=== PATIENT | female | born 1945 | race Caucasian/White ===

== ENCOUNTER → 2016-07-19 | Outpatient (CLI) | payer BC, OTHER ==
[~2016-07-19] MED LIST: B-COTAB18 PO; CHOL400T PO; LEVO75TA PO; OMEG12006 PO; ZNTT/150 PO
--- NOTE | 2016-07-19 16:04 | MAMMOGRAPHY REPORT ---
BILATERAL DIGITAL SCREENING MAMMOGRAM WITH CAD: 07/19/2016 CLINICAL HISTORY: Routine screening. Patient has no complaints. TECHNIQUE: Bilateral CC and MLO views were obtained. Current study was also evaluated with a Comput er Aided Detection (CAD) system. COMPARISON: Comparison is made to exams dated: 06/18/2015 mammogram, 04/17/2013 mammogram, 06/17/2014 ma mmogram, 04/16/2012 mammogram, 04/11/2011 mammogram, and 04/07/2009 mammogram - [facility]. BREAST COMPOSITION: The tissue of both breasts is heterogeneously dense, which may obscure small ma sses. FINDINGS: There are minimal vascular calcifications and benign coarse calcifications in the breasts. No suspicious mass, architectural distortion or cluster of microcalcifications is seen. IMPRESSION: ACR BI-RADS CATEGORY 1: NEGATIVE There is no mammographic evidence of malignancy. A 1 year screening mammogram is recommended. The p atient will receive written notification of the results. Approximately 10% of breast cancers are not detected with mammography. A negative mammographic repor t should not delay biopsy if a clinically suggestive mass is present. Mamta Vegas M.D. ay/:07/19/2016 15:37:52 Canceling Machine Operator: Isidro HAYNES(R)(M), [facility] letter sent: Normal 1/2 BI-RADS Code: ACR BI-RADS Category 1: Negative
== END | disposition home or self-care (01) ==
LOC: C.MAMM 13:45
PROVIDERS: ATTEND Family Medicine
DX: Z12.31 Encounter for screening mammogram for malignant neoplasm of breast (principal)

== ENCOUNTER → 2016-10-21 | Outpatient (CLI) | payer BC, OTHER | END | disposition home or self-care (01) | LOC: C.MAMM 13:43 | PROVIDERS: ATTEND Family Medicine | DX: Z78.0 Asymptomatic menopausal state (principal); M85.88 Other specified disorders of bone density and structure, other site; M85.851 Other specified disorders of bone density and structure, right thigh; M85.852 Other specified disorders of bone density and structure, left thigh ==

== ENCOUNTER → 2017-07-20 | Outpatient (CLI) | payer BC, OTHER ==
[~2017-07-20] MED LIST changes: +RANI150T85 PO; -ZNTT/150 PO
--- NOTE | 2017-07-21 15:27 | MAMMOGRAPHY REPORT ---
BILATERAL DIGITAL SCREENING MAMMOGRAM TOMOSYNTHESIS WITH CAD: 07/20/2017 CLINICAL HISTORY: Routine screening. TECHNIQUE: Breast tomosynthesis in addition to standard 2D mammography was performed. Current study was also evaluated with a Computer Aided Detection (CAD) system. COMPARISON: Comparison is made to exams dated: 07/19/2016 mammogram, 12/09/2015 mammogram, 06/18/2015 rayne mogram, 06/17/2014 mammogram, 04/17/2013 mammogram, and 04/16/2012 mammogram - [facility] er. BREAST COMPOSITION: The tissue of both breasts is heterogeneously dense, which may obscure small mas ses. FINDINGS: No suspicious masses, calcifications, or areas of architectural distortion are noted in ei ther breast. There has been no significant interval change compared to prior exams. Bilateral benign -appearing calcifications are not significantly changed. A linear scar marker denotes a scar on the right medial breast. Small circumscribed benign-appearing mass in the right lower inner quadrant is stable. IMPRESSION: ACR BI-RADS CATEGORY 2: BENIGN There is no mammographic evidence of malignancy. A 1 year screening mammogram is recommended. The pa tient will receive written notification of the results. Approximately 10% of breast cancers are not detected with mammography. A negative mammographic report should not delay biopsy if a clinically suggestive mass is present. Luma Augustin M.D. ah/:07/20/2017 14:20:50 Stoner Out: Isidro KILGORE)(Tobin), [facility] letter sent: Normal 1/2 BI-RADS Code: ACR BI-RADS Category 2: Benign
== END | disposition home or self-care (01) ==
LOC: C.MAMM 13:59
PROVIDERS: ATTEND Family Medicine
DX: Z12.31 Encounter for screening mammogram for malignant neoplasm of breast (principal)

== ENCOUNTER → 2017-10-30 | Outpatient (CLI) | payer BC, OTHER | END | disposition home or self-care (01) | LOC: C.RDSM 16:45 | PROVIDERS: ATTEND Family Medicine | DX: M25.561 Pain in right knee (principal); G89.29 Other chronic pain ==

== ENCOUNTER 2023-02-14 12:19 | Observation (INO) ==
--- NOTE | 2023-02-14 12:37 | Emergency Department Note ---
History of Present Illness General Chief complaint: Dizziness Stated complaint: REFERRED BY , VERTIGO, NUMBNESS IN LEFT SIDE Time Seen by Provider: 02/14/23 12:27 History of Present Illness Maximum Pain Intensity: 5 77-year-old female with a prior history of vertigo not currently on any medications states that at 11 AM today she had sudden onset of dizziness a frontal left-sided headache some change in the left side vision and numbness to the left side of her face and tingling in her lips. Patient states that she felt like she was extremely dizzy and could not walk at that time. There is no slurred speech. She states that the symptoms are currently resolved. Patient denies any hearing loss, tinnitus. Patient used to take meclizine many years ago for vertigo. Patient is not currently on blood thinners. There are no other complaints. No other mitigating or alleviating factors Home Medications Medication Instructions Recorded Confirmed Type cholecalciferol (vitamin D3) 25 2,000 unit PO DAILY 02/23/18 02/14/23 History mcg (1,000 unit) capsule (Vitamin D3) cyanocobalamin (vitamin B-12) 1,000 mcg PO DAILY 05/20/18 02/14/23 History 1,000 mcg tablet multivitamin 1 tab PO DAILY 05/20/18 02/14/23 History alendronate 35 mg tablet 35 mg PO WK 10/12/20 02/14/23 History fexofenadine 180 mg tablet 180 mg PO UD PRN ALLERGIES 10/12/20 02/14/23 History fluticasone propionate 50 1 spray intranasal UD PRN SPRING 10/12/20 02/14/23 History mcg/actuation nasal ALLERGIES spray,suspension omeprazole 20 mg capsule,delayed 20 mg PO DAILY 10/12/20 02/14/23 History release estradiol 10 mcg vaginal tablet 10 mcg vaginal 2XWK 02/14/23 02/14/23 History levothyroxine 75 mcg tablet 75 mcg PO DAILY 02/14/23 02/14/23 History meclizine 25 mg tablet 25 mg PO TID PRN .DIZZYNESS 02/14/23 02/14/23 History Allergies Allergy/AdvReac Type Severity Reaction Status Date / Time cat dander Allergy Unknown Congested Verified 02/14/23 14:02 ciprofloxacin [From Cipro] Allergy Unknown "GOT CDIFF" Verified 02/14/23 14:02 clindamycin Allergy Unknown PT DOESN'T Verified 02/14/23 14:02 REMEMBER THIS ONE codeine Allergy Unknown HIVES Verified 02/14/23 14:02 Penicillins Allergy Unknown PT NOT SURE Verified 02/14/23 14:02 Sulfa (Sulfonamide Allergy Unknown IMMEDIATE Verified 02/14/23 14:02 Antibiotics) DEVELOPMENT OF UTI morphine AdvReac Unknown Vomiting Verified 02/14/23 14:02 Past Med/Surg History Medical History Acid reflux Anxiety CONTROLS ON OWN History of anesthesia reaction WITH TONSIL AND ADENOID SURGERY, AGE 4 - HAD ETHER AND "ALMOST KILLED ME" , " COULDN'T WAKE UP" History of back problems HX BROKEN BACK, FOLLOWS CHIRO - NO LIMITATIONS History of hyperparathyroidism Hypothyroid Osteopenia Seasonal allergies SPRING Surgical History History of X3 History of cataract surgery RIGHT AND LEFT History of cholecystectomy History of colonoscopy History of hysterectomy History of incisional hernia repair History of parathyroid surgery 2 PARATHYROID GLANDS REMOVED History of tonsillectomy and adenoidectomy Family History Father Family history of diabetes mellitus Grandmother (Maternal) Family history of diabetes mellitus Aunt Family history of diabetes mellitus Brother Family history of colonic polyps Social History Smoking Status: Never smoker Do You Dip or Chew Tobacco: No; Hx Alcohol Use: No Preferred Language: Yoruba Communication Ability: Effective Competency Evaluated Nurse Aide Required: No Beliefs That Will Affect Care: None Current Living Situation: Spouse Feels Safe at Home: Yes Assistive Devices: None Review of Systems A total of 10 systems reviewed and were otherwise negative Ear, Nose, Mouth, Throat: + dizziness; no ear pain and no tinnitus Respiratory: no cough Physical Exam Vital Signs Vital Signs - 24 hr 02/14/23 12:22 02/14/23 13:06 02/14/23 13:06 Temperature 36.9 C Temperature Source Temporal Artery Scan Pulse Rate 78 Pulse Rate [Apical] 83 Pulse Rate from SpO2 Sensor Pulse Rhythm Regular Pulse Rhythm [Apical] Regular Pulse Strength Normal Pulse Strength [Apical] Normal Respiratory Rate 20 20 Respiratory Effort / Characteristics Non-Labored Spontaneous Non-Labored Spontaneous Respiratory Depth Normal Normal Respiratory Pattern Regular Blood Pressure 177/65 H Blood Pressure [Left Arm] 170/87 H Blood Pressure Mean 102 Blood Pressure Mean [Left Arm] 114 Blood Pressure Position Sitting Pulse Oximetry 99 98 98 Oxygen Delivery Method Room Air Room Air Room Air Sepsis Recent Fever Within 48 Hours No Sepsis New/Unexplained Change in Mental Status No Sepsis Action Taken by Nursing No Action Required 02/14/23 13:02 02/14/23 12:54 02/14/23 12:57 Temperature Temperature Source Pulse Rate 90 82 Pulse Rate [Apical] Pulse Rate from SpO2 Sensor 87 82 Pulse Rhythm Pulse Rhythm [Apical] Pulse Strength Pulse Strength [Apical] Respiratory Rate 20 Respiratory Effort / Characteristics Respiratory Depth Respiratory Pattern Blood Pressure Blood Pressure [Left Arm] Blood Pressure Mean Blood Pressure Mean [Left Arm] Blood Pressure Position Pulse Oximetry 99 97 Oxygen Delivery Method Sepsis Recent Fever Within 48 Hours Sepsis New/Unexplained Change in Mental Status Sepsis Action Taken by Nursing 02/14/23 13:00 02/14/23 13:05 02/14/23 13:05 Temperature Temperature Source Pulse Rate 92 H 86 Pulse Rate [Apical] Pulse Rate from SpO2 Sensor 93 H 85 Pulse Rhythm Pulse Rhythm [Apical] Pulse Strength Pulse Strength [Apical] Respiratory Rate 19 25 H Respiratory Effort / Characteristics Respiratory Depth Respiratory Pattern Blood Pressure 170/87 H Blood Pressure [Left Arm] Blood Pressure Mean 119 Blood Pressure Mean [Left Arm] Blood Pressure Position Pulse Oximetry 100 99 Oxygen Delivery Method Sepsis Recent Fever Within 48 Hours Sepsis New/Unexplained Change in Mental Status Sepsis Action Taken by Nursing 02/14/23 13:10 02/14/23 13:16 02/14/23 13:18 Temperature Temperature Source Pulse Rate 81 81 80 Pulse Rate [Apical] Pulse Rate from SpO2 Sensor 80 81 81 Pulse Rhythm Pulse Rhythm [Apical] Pulse Strength Pulse Strength [Apical] Respiratory Rate 21 18 24 Respiratory Effort / Characteristics Respiratory Depth Respiratory Pattern Blood Pressure Blood Pressure [Left Arm] Blood Pressure Mean Blood Pressure Mean [Left Arm] Blood Pressure Position Pulse Oximetry 99 99 99 Oxygen Delivery Method Sepsis Recent Fever Within 48 Hours Sepsis New/Unexplained Change in Mental Status Sepsis Action Taken by Nursing 02/14/23 13:19 Temperature Temperature Source Pulse Rate Pulse Rate [Apical] Pulse Rate from SpO2 Sensor Pulse Rhythm Pulse Rhythm [Apical] Pulse Strength Pulse Strength [Apical] Respiratory Rate Respiratory Effort / Characteristics Respiratory Depth Respiratory Pattern Blood Pressure 169/97 H Blood Pressure [Left Arm] Blood Pressure Mean 146 Blood Pressure Mean [Left Arm] Blood Pressure Position Pulse Oximetry Oxygen Delivery Method Sepsis Recent Fever Within 48 Hours Sepsis New/Unexplained Change in Mental Status Sepsis Action Taken by Nursing GENERAL: Patient is awake alert in no acute distress patient is resting comfortably and showing no signs of anxiety EYES: The conjunctivae are clear. The pupils are round and reactive. EARS, NOSE, MOUTH AND THROAT: The nose is without any evidence of any deformity. Mucous membranes are moist. Tongue is midline. TMs are clear bilaterally NECK: The neck is nontender and supple. RESPIRATORY: Normal respiratory effort is noted there is no evidence of wheezing rhonchi or rales CARDIOVASCULAR: Regular rate and rhythm noted there no murmurs rubs or gallops normal S1 normal S2. GASTROINTESTINAL: The abdomen is soft. Abdomen is nontender. BACK: No midline tenderness or or step-off noted range of motion in flexion extension as well as rotation no signs of muscle spasm noted MUSCULOSKELETAL/EXTREMITIES: There is no evidence of gross deformity full range of motion is noted in the hips and shoulders. SKIN: There is no obvious evidence of any rash. There are no petechiae, pallor or cyanosis noted. NEUROLOGIC: Patient is awake alert and oriented x3 strength is symmetric; not ataxic, no nystagmus; NIH 0 Course Reevaluation(s) Reevaluation #1: Patient complains of nausea and some dizziness on repeat examination. Patient was started on IV fluids, Zofran, aspirin Time: 13:34 Consultations Consultation #1: Spoke with Dr. Rodriguez from [facility] for a stat consult for dizziness at 1250 Time: 12:50 Consultation #2: Case was discussed with Dr. Rodriguez, the patient is currently not a TNK patient; the recommendations are that the patient gets an MRI, be placed on aspirin, IV fluids and Zofran. Time: 13:30 Consultation #3: [facility] Time: 14:10 Administered Medications Sodium Chloride (Nss 1000ml) 1,000 mls @ 999 mls/hr IV .Q1H1M ONE Stop: 02/14/23 14:31 Last Admin: 02/14/23 13:40 Dose: 999 mls/hr Documented By: HS Discontinued Medications Ioversol (Ioversol 350 Mg 125ml Prefilled Syringe) 117 ml IV ONCE ONE Stop: 02/14/23 12:49 Last Admin: 02/14/23 12:48 Dose: 117 ml Documented By: LISA Ondansetron HCl (Ondansetron Inj 2 Mg/Ml 2 Ml Vial) 4 mg IV NOW STA Stop: 02/14/23 13:32 Last Admin: 02/14/23 13:40 Dose: 4 mg Documented By: ALEC Critical Care Time Critical Care Time: Yes Total Critical Care Time: 35 I have personally spent greater than 35 minutes of critical care time in the direct management of this patient. This includes bedside care, interpretation of diagnostic studies, and testing, discussion with consultants, patient, and family members, and other required patient management activities. These minutes are in excess of all separately billable procedures. Medical Decision Making Medical Records Attestation: I reviewed the patient's medical records. Home Medications Current Medication List: was personally reviewed by me Laboratory Data Attestation: I reviewed the patient's lab results. Lab results interpreted by me are unremarkable 02/14/23 12:36 02/14/23 12:36 Lab Results 02/14/23 02/14/23 02/14/23 Range/Units 12:36 12:36 12:36 WBC 5.38 (4.8-10.8) K/ul RBC 4.44 (4.20-5.40) M/uL Hgb 14.1 (12.0-16.0) g/dl POC Hgb (12.0-16.0) g/dl Hct 40.4 (37.0-47.0) % POC Hct (37-47) % MCV 91.0 (80.0-100.0) fL MCH 31.8 (25.0-34.0) pg MCHC 34.9 (32.0-36.0) g/dL RDW Std Deviation 45.1 (36.4-46.3) fL RDW Coeff of Renato 13.4 (11.5-14.5) % Plt Count 187 (130-400) K/uL MPV 10.1 (9.4-12.4) fL Immature Gran % (Auto) 0.4 % Neut % (Auto) 42.1 % Lymph % (Auto) 40.0 % Lyman % (Auto) 9.3 % Eos % (Auto) 7.8 % Baso % (Auto) 0.4 % Neut # (Auto) 2.27 (1.40-6.50) K/uL Lymph # (Auto) 2.15 (1.20-3.40) K/uL Lyman # (Auto) 0.50 (0.11-0.59) K/uL Eos # (Auto) 0.42 (0.00-0.50) K/uL Baso # (Auto) 0.02 (0.00-0.20) K/uL Immature Gran # (Auto) 0.02 (0.01-0.20) K/uL PT 10.5 (9.0-12.0) Seconds INR 1.0 (0.9-1.1) APTT 20.8 L (21.0-31.0) Seconds PTT Ratio 0.7 POC Sodium (135-144) mmol/L Sodium 135 L (136-145) mmol/L POC Potassium (3.3-5.0) mmol/L Potassium 3.8 (3.5-5.1) mmol/L POC Chloride (101-112) mmol/L Chloride 103 (98-107) mmol/L Carbon Dioxide 25 (21-32) mmol/L POC Total CO2 (24-31) mmol/L Anion Gap 7 (3-11) POC Anion Gap (16-25) mmol/L POC BUN (7-18) mg/dl BUN 14 (6-23) mg/dl Creatinine 1.13 (0.6-1.2) mg/dl POC Creatinine (0.6-1.3) mg/dl Est Cr Clr Drug Dosing 31.8 ml/min Est GFR ( Amer) 53.9 ml/min Est GFR (Non-Af Amer) 46.5 ml/min BUN/Creatinine Ratio 12.4 (10-20) Glucose 139 H (70-99(Fasting)) mg/dl POC Glucose (other) (70-99) mg/dl Calcium 9.8 (8.6-10.3) mg/dl POC Ioniz Calcium Raman (1.12-1.32) mmol/l Magnesium 1.9 (1.7-2.4) mg/dl Total Bilirubin 0.5 (0.2-1.0) mg/dl AST 24 (13-39) U/L ALT 16 (7-52) U/L Alkaline Phosphatase 68 (34-104) U/L Troponin I High Sens 12.3 (0-14) pg/ml Total Protein 7.1 (6.0-8.3) gm/dl Albumin 4.3 (3.4-5.0) gm/dl Globulin 2.8 (2.5-4.0) gm/dl Albumin/Globulin Ratio 1.5 (0.9-2) 02/14/23 Range/Units 12:37 WBC (4.8-10.8) K/ul RBC (4.20-5.40) M/uL Hgb (12.0-16.0) g/dl POC Hgb 14.3 (12.0-16.0) g/dl Hct (37.0-47.0) % POC Hct 42 (37-47) % MCV (80.0-100.0) fL MCH (25.0-34.0) pg MCHC (32.0-36.0) g/dL RDW Std Deviation (36.4-46.3) fL RDW Coeff of Renato (11.5-14.5) % Plt Count (130-400) K/uL MPV (9.4-12.4) fL Immature Gran % (Auto) % Neut % (Auto) % Lymph % (Auto) % Lyman % (Auto) % Eos % (Auto) % Baso % (Auto) % Neut # (Auto) (1.40-6.50) K/uL Lymph # (Auto) (1.20-3.40) K/uL Lyman # (Auto) (0.11-0.59) K/uL Eos # (Auto) (0.00-0.50) K/uL Baso # (Auto) (0.00-0.20) K/uL Immature Gran # (Auto) (0.01-0.20) K/uL PT (9.0-12.0) Seconds INR (0.9-1.1) APTT (21.0-31.0) Seconds PTT Ratio POC Sodium 136 (135-144) mmol/L Sodium (136-145) mmol/L POC Potassium 4.2 (3.3-5.0) mmol/L Potassium (3.5-5.1) mmol/L POC Chloride 103 (101-112) mmol/L Chloride (98-107) mmol/L Carbon Dioxide (21-32) mmol/L POC Total CO2 27 (24-31) mmol/L Anion Gap (3-11) POC Anion Gap 11.0 L (16-25) mmol/L POC BUN 17 (7-18) mg/dl BUN (6-23) mg/dl Creatinine (0.6-1.2) mg/dl POC Creatinine 1.1 (0.6-1.3) mg/dl Est Cr Clr Drug Dosing ml/min Est GFR ( Amer) ml/min Est GFR (Non-Af Amer) ml/min BUN/Creatinine Ratio (10-20) Glucose (70-99(Fasting)) mg/dl POC Glucose (other) 138 H (70-99) mg/dl Calcium (8.6-10.3) mg/dl POC Ioniz Calcium Raman 1.11 L (1.12-1.32) mmol/l Magnesium (1.7-2.4) mg/dl Total Bilirubin (0.2-1.0) mg/dl AST (13-39) U/L ALT (7-52) U/L Alkaline Phosphatase (34-104) U/L Troponin I High Sens (0-14) pg/ml Total Protein (6.0-8.3) gm/dl Albumin (3.4-5.0) gm/dl Globulin (2.5-4.0) gm/dl Albumin/Globulin Ratio (0.9-2) Imaging Data Attestation: I personally reviewed and interpreted this imaging study as caroline cruz: My Impression: CT of the brain per my interpretation negative for intracranial hemorrhage Radiologist's Impression: Head CT 02/14/23 12:32 CT head/brain wo con CLINICAL HISTORY: neuro deficit, acute stroke suspected Technique: Contiguous axial CT images of the head were acquired from the base of the skull to the vertex without intravenous contrast administration. Images were viewed in brain, subdural and bone windows. Automated dose lowering techniques and/or adjustment according to patient size were utilized for this exam. Comparison: Comparison is made to CTA head and neck 02/14/2023 Findings: The ventricles, basal cisterns, and cerebral sulci are normal. There is no acute intracranial hemorrhage or evidence of acute territorial infarction. Neither mass effect, shift of the midline structures, nor abnormal extra-axial fluid collections are shown. Imaged portions of the paranasal sinuses and mastoid air cells are clear. The orbits appear normal. There are no acute fractures of the calvaria or scalp swelling. Hyperostosis frontalis is noted. Impression: No acute intracranial hemorrhage, no evidence of acute territorial infarction or other acute intracranial disease process. ACT 112: Negative or not required by law. Electronically signed by: Maurice Cotter M.D. 02/14/2023 1:03 PM Head CTA 02/14/23 12:32 HEAD CTA HISTORY: Dizziness. neuro deficit, acute stroke suspected TECHNIQUE: Multiaxial CT images of the head were performed both before and after the intravenous administration of contrast to evaluate the major cerebral vessels. 3D/MIP images were also obtained. Sagittal and coronal reformats were reviewed. A dose lowering technique was utilized adhering to the principles of ALARA. COMPARISON: Head CT 05/20/2018. FINDINGS: The paranasal sinuses and mastoid air cells are clear. The calvarium and skull base are intact. No definite mass, hematoma, midline shift, acute infa rct. The major dural venous sinuses appear patent. Visualized intracranial internal carotid arteries, distal vertebral arteries, and basilar artery are widely patent. There is no significant stenosis, occlusion, or aneurysm seen within the bilateral ACAs, MCAs, or chief privacy officer. IMPRESSION: No significant stenosis, occlusion, or aneurysm within the marshall of [place]. ACT 112: Negative or not required by law. Electronically signed by: Cayden Gifford M.D. 02/14/2023 1:05 PM Neck CTA 02/14/23 12:32 NECK CTA HISTORY: Dizziness. neuro deficit, acute stroke suspected TECHNIQUE: Multiaxial CT images of the neck were performed following the intravenous administration of contrast to evaluate the major cervical vessels. 3D/MIP images were also obtained. Sagittal and coronal reformats were reviewed. All measurements were calculated based on NASCET criteria. A dose lowering technique was utilized adhering to the principles of ALARA. COMPARISON STUDY: None. FINDINGS: The aortic arch and proximal great vessels are widely patent. There is no significant stenosis, occlusion, or dissection identified within the bilateral common carotid, internal carotid, or vertebral arteries. IMPRESSION: No significant stenosis, occlusion, or dissection identified within the carotid or vertebral arteries. ACT 112: Negative or not required by law. Electronically signed by: Cayden Gifford M.D. 02/14/2023 1:26 PM ECG Data Attestation: I personally reviewed and interpreted this ECG as follows: Additional Comments: EKG interpreted by me normal sinus rhythm rate of 80, nonspecific ST-T change no obvious ST segment elevation or depression, normal intervals normal axis Telemetry was ordered by me, interpreted as normal sinus rhythm rate of 80 MDM Narrative Medical decision making differential diagnosis includes TIA, CVA, vertigo, electrolyte abnormality, cardiac dysrhythmia Plan is to initiate stroke alert, evaluate for vertiginous symptoms External medical records were reviewed by me at bedside is also provided medical history Patient will be admitted for further TIA work-up and treatment, patient was given aspirin, patient was given Zofran and IV fluids Case was discussed with the [facility] hospitalist for admission Impression & Plan Dizziness, TIA (transient ischemic attack) Discharge Plan Visit Data Chief Complaint: Dizziness Stated Complaint: REFERRED BY , VERTIGO, NUMBNESS IN LEFT SIDE ED Provider: Joseph Ruth Discharge Problem: Dizziness, TIA (transient ischemic attack) Patient Disposition: Admitted As Inpatient Forms Stand Alone Forms: My [facility] Prescriptions Prescriptions: No Action cholecalciferol (vitamin D3) [Vitamin D3] 1,000 unit Capsule 2,000 unit PO DAILY multivitamin Tablet 1 tab PO DAILY cyanocobalamin (vitamin B-12) 1,000 mcg Tablet 1,000 mcg PO DAILY Patient Comments: "B 50 HAS B 12 IN IT" fexofenadine 180 mg Tablet 180 mg PO UD PRN (Reason: ALLERGIES) omeprazole 20 mg Capsule,Delayed Release(Dr/Ec) 20 mg PO DAILY Patient Comments: IN THE AFTERNOON fluticasone propionate 50 mcg/actuation Brandon,Suspension 1 spray INTRANASAL UD PRN (Reason: SPRING ALLERGIES) alendronate 35 mg Tablet 35 mg PO WK Patient Comments: FRIDAYS Rx Instructions: Q THUR levothyroxine 75 mcg tablet 75 mcg PO DAILY meclizine 25 mg tablet 25 mg PO TID PRN (Reason: .DIZZYNESS) estradiol 10 mcg tablet 10 mcg VAGINAL 2XWK Rx Instructions: TU, MON Referrals Referrals: Brinda Rowan DO [Primary Care Provider] -
[2023-02-14] MEDS ORDERED: IOVERSOL 350 MG 125mL Prefilled Syringe IV ONE (12:48)
[2023-02-14 12:50] LABS: iSTAT Creatinine 1.1 mg/dl (0.6-1.3); iSTAT Hemoglobin 14.3 g/dl (12.0-16.0); iSTAT Ionized Calcium 1.11 mmol/l (1.12-1.32); iSTAT Potassium 4.2 mmol/L (3.3-5.0)
[2023-02-14 12:53] LABS: Basophils # (auto) 0.02 K/uL (0.00-0.20); Basophils % (auto) 0.4 %; Eosinophils # (auto) 0.42 K/uL (0.00-0.50); Eosinophils % (auto) 7.8 %; Hematocrit (blood only) 40.4 % (37.0-47.0); Hemoglobin 14.1 g/dl (12.0-16.0); Immature Granulocytes # (auto) 0.02 K/uL (0.01-0.20); Immature Granulocytes % (auto) 0.4 %; Lymphocytes # (auto) 2.15 K/uL (1.20-3.40); Mean Corpuscular Hemoglobin 31.8 pg (25.0-34.0); Mean Corpuscular Hgb Conc 34.9 g/dL (32.0-36.0); Mean Platelet Volume 10.1 fL (9.4-12.4); Monocytes % (auto) 9.3 %; Neutrophils # (auto) 2.27 K/uL (1.40-6.50); Neutrophils % (auto) 42.1 %; Platelet Count 187 K/uL (130-400); RDW Coefficient of Variation 13.4 % (11.5-14.5); RDW Standard Deviation 45.1 fL (36.4-46.3); Red Blood Count 4.44 M/uL (4.20-5.40); White Blood Count 5.38 K/ul (4.8-10.8)
[2023-02-14 13:04] LABS: Partial Thromboplastin Ratio 0.7; Partial Thromboplastin Time 20.8 Seconds (21.0-31.0); Prothrombin Time 10.5 Seconds (9.0-12.0)
--- NOTE | 2023-02-14 13:04 | CT Scan Report ---
CT head/brain wo con CLINICAL HISTORY: neuro deficit, acute stroke suspected Technique: Contiguous axial CT images of the head were acquired from the base of the skull to the simeon radha without intravenous contrast administration. Images were viewed in brain, subdural and bone [facility]. Automated dose lowering techniques and/or adjustment according to patient size were utilized for this exam. Comparison: Comparison is made to CTA head and neck 02/14/2023 Findings: The ventricles, basal cisterns, and cerebral sulci are normal. There is no acute intracranial hemorrh age or evidence of acute territorial infarction. Neither mass effect, shift of the midline structures , nor abnormal extra-axial fluid collections are shown. Imaged portions of the paranasal sinuses and mastoid air cells are clear. The orbits appear normal. There are no acute fractures of the calvaria or scalp swelling. Hyperostosis frontalis is noted. Impression: No acute intracranial hemorrhage, no evidence of acute territorial infarction or other acute intracra nial disease process. ACT 112: Negative or not required by law. Electronically signed by: Maurice Cotter M.D. 02/14/2023 1:03 PM
--- NOTE | 2023-02-14 13:06 | CT Scan Report ---
HEAD CTA HISTORY: Dizziness. neuro deficit, acute stroke suspected TECHNIQUE: Multiaxial CT images of the head were performed both before and after the intravenous admi nistration of contrast to evaluate the major cerebral vessels. 3D/MIP images were also obtained. Sag ittal and coronal reformats were reviewed. A dose lowering technique was utilized adhering to the hilaria Shepherd. COMPARISON: Head CT 05/20/2018. FINDINGS: The paranasal sinuses and mastoid air cells are clear. The calvarium and skull base are int act. No definite mass, hematoma, midline shift, acute infarct. The major dural venous sinuses appear patent. Visualized intracranial internal carotid arteries, distal vertebral arteries, and basilar art mahi are widely patent. There is no significant stenosis, occlusion, or aneurysm seen within the bilat eral ACAs, MCAs, or self sealing fuel tank builder. IMPRESSION: No significant stenosis, occlusion, or aneurysm within the [place]. ACT 112: Negative or not required by law. Electronically signed by: Cayden Gifford M.D. 02/14/2023 1:05 PM
[2023-02-14 13:09] LABS: Albumin Globulin Ratio 1.5 (0.9-2); Albumin Level 4.3 gm/dl (3.4-5.0); BUN Creatinine Ratio 12.4 (10-20); Bilirubin,Total 0.5 mg/dl (0.2-1.0); Calcium 9.8 mg/dl (8.6-10.3); Creatinine Clr Calc Pharmacy 31.8 ml/min; Est GFR (African American) 53.9 ml/min; Est GFR (Non-African American) 46.5 ml/min; Globulin 2.8 gm/dl (2.5-4.0); Magnesium 1.9 mg/dl (1.7-2.4); Potassium 3.8 mmol/L (3.5-5.1); Total Protein 7.1 gm/dl (6.0-8.3)
[2023-02-14 13:15] LABS: Troponin I High Sensitivity 12.3 pg/ml (0-14)
--- NOTE | 2023-02-14 13:27 | CT Scan Report ---
NECK CTA HISTORY: Dizziness. neuro deficit, acute stroke suspected TECHNIQUE: Multiaxial CT images of the neck were performed following the intravenous administration o f contrast to evaluate the major cervical vessels. 3D/MIP images were also obtained. Sagittal and cor onal reformats were reviewed. All measurements were calculated based on NASCET criteria. A dose low ering technique was utilized adhering to the principles of ALA. COMPARISON STUDY: None. FINDINGS: The aortic arch and proximal great vessels are widely patent. There is no significant sten osis, occlusion, or dissection identified within the bilateral common carotid, internal carotid, or v ertebral arteries. IMPRESSION: No significant stenosis, occlusion, or dissection identified within the carotid or vertebral arteries . ACT 112: Negative or not required by law. Electronically signed by: Cayden Gifford M.D. 02/14/2023 1:26 PM
[2023-02-14] MEDS ORDERED: SODIUM CHLORIDE 0.9% 1,000 ML IV ONE (13:31)
[2023-02-14] MEDS ORDERED: ONDANSETRON INJ 2 MG/ML 2 ML VIAL IV STA (13:31)
[2023-02-14] MEDS ORDERED: ASPIRIN 325 MG ECTAB PO STA (13:31)
--- NOTE | 2023-02-14 14:13 | History & Physical Report ---
Date of Service February 14, 2023 Assessment & Plan (1) TIA (transient ischemic attack): Plan: CVA eval Patient with left-sided facial numbness, tingling, and dizziness. At some lip tingling and poor coordination, acute onset Has had vertiginous symptoms recently, this is the first episode associated with numbness/tingling. No upper or lower extremity weakness Was evaluated as a stroke alert. Telestroke [facility] [place]. Rodriguez. No TNKase recommended, DDx does include CVA/TIA. Standard stroke protocol and MRI recommended MRI Noncon pending Permissive hypertension goal BSG 220/110 pending MRI results. If CVA is noted continue permissive hypertension for 24 hours. Otherwise reduce goal parameters to systolic 180. Labetalol on-call. Received aspirin full dose while in the ER Continue aspirin 81 mg daily. - Pt reports multiple intermittent episodes of increasing similar and worsening sx. Possible crescendo strike like symptoms, will add DAPT x3 weeks. Reviewed with neurology. Agree with standard stroke work-up, and DAPT tomorrow as long as no bleeding is observed overnight. While patient had a past history of optic neuritis would be unusual for demyelinating disease to be present now, will defer contrasted MRI CThead: No acute findings CTA head/neck: No acute findings Echo with bubble study pending Hypothyroidism Continue Synthroid. TSH pending GERD Continue PPI, converted to 40 mg daily while on aspirin and due to stress DVT prophylaxis: Lovenox Disposition: PCU for IV antihypertensive availability, stroke protocol Diet: Heart healthy CODE STATUS: Full Code (2) Dizziness: (3) Hypothyroid: History of Present Illness Primary Care Provider: Brinda Rowan DO Around 11am was eating a popsicle and developed sudden onset dizziness and 'like I couldn't stand up straight' with lip and L facial numbness/tingling. Went and sat on the couch and numbness spread from midline and across the L side of her face with normal sensation on the R. Purcell likeheaded and off balance, but had NO room spinning/no vertigo. She noticed some blurriness of the vision in her L eye while her R eye remained sharp. No chest pain or chest pressure. Did not notice any shrotness of breath. She thinks she did have some L sided leg seakness because she had difficulty standing and 'left arm and leg werent right, I could walk but was having trouble standing and had to hand onto stuff'. Had similar symptoms at the end of last December had an episode of being off balance 'like I was drunk but hadn't drank anthing' which improved fairly quickly. One other episode of dizziness while watering plants and noticed dizziness when moving her head up and down at that time. No numbness/tingling or weakness at that time. Gareth prior to this had another episode of diziness no numbness/tingling which improved quickly but had difficulty walking to the kitchen. Each episode seems to be getting worse than the last. FHx of strokes- mother had a massive stroke at 80s. FHx of TN in 'everybody' but most over 65, 1x paternal uncle with massive TN before age 65. Father with hx of DM. No personal hx of DM. Pt with no hx of HTN. No history of HLD. Medical History: Reviewed Medications: Reviewed Surgical History: Reviewed Family history: Reviewed Allergies: Reviewed Social History: Reviewed Code Status: Full Code Allergies Allergy/AdvReac Type Severity Reaction Status Date / Time cat dander Allergy Unknown Congested Verified 02/14/23 14:02 ciprofloxacin [From Cipro] Allergy Unknown "GOT CDIFF" Verified 02/14/23 14:02 clindamycin Allergy Unknown PT DOESN'T Verified 02/14/23 14:02 REMEMBER THIS ONE codeine Allergy Unknown HIVES Verified 02/14/23 14:02 Penicillins Allergy Unknown PT NOT SURE Verified 02/14/23 14:02 Sulfa (Sulfonamide Allergy Unknown IMMEDIATE Verified 02/14/23 14:02 Antibiotics) DEVELOPMENT OF UTI morphine AdvReac Unknown Vomiting Verified 02/14/23 14:02 Home Medications Medication Instructions Recorded Confirmed Type cholecalciferol (vitamin D3) 25 2,000 unit PO DAILY 02/23/18 02/14/23 History mcg (1,000 unit) capsule (Vitamin D3) cyanocobalamin (vitamin B-12) 1,000 mcg PO DAILY 05/20/18 02/14/23 History 1,000 mcg tablet multivitamin 1 tab PO DAILY 05/20/18 02/14/23 History alendronate 35 mg tablet 35 mg PO WK 10/12/20 02/14/23 History fexofenadine 180 mg tablet 180 mg PO UD PRN ALLERGIES 10/12/20 02/14/23 History fluticasone propionate 50 1 spray intranasal UD PRN SPRING 10/12/20 02/14/23 History mcg/actuation nasal ALLERGIES spray,suspension omeprazole 20 mg capsule,delayed 20 mg PO DAILY 10/12/20 02/14/23 History release estradiol 10 mcg vaginal tablet 10 mcg vaginal 2XWK 02/14/23 02/14/23 History levothyroxine 75 mcg tablet 75 mcg PO DAILY 02/14/23 02/14/23 History meclizine 25 mg tablet 25 mg PO TID PRN .DIZZYNESS 02/14/23 02/14/23 History Past Med/Surg History Medical History (Updated 02/14/23 @ 14:34 by Filemon Skinner MD) Acid reflux Anxiety CONTROLS ON OWN History of anesthesia reaction WITH TONSIL AND ADENOID SURGERY, AGE 4 - HAD ETHER AND "ALMOST KILLED ME" , "COULDN'T WAKE UP" History of back problems HX BROKEN BACK, FOLLOWS CHIRO - NO LIMITATIONS History of hyperparathyroidism Hypothyroid Osteopenia Seasonal allergies SPRING Surgical History History of X3 History of cataract surgery RIGHT AND LEFT History of cholecystectomy History of colonoscopy History of hysterectomy History of incisional hernia repair History of parathyroid surgery 2 PARATHYROID GLANDS REMOVED History of tonsillectomy and adenoidectomy Family History Father Family history of diabetes mellitus Grandmother (Maternal) Family history of diabetes mellitus Aunt Family history of diabetes mellitus Brother Family history of colonic polyps Social History Smoking Status: Never smoker Do You Dip or Chew Tobacco: No; Hx Alcohol Use: No Preferred Language: Ecuadorean Communication Ability: Effective Gas Station Attendant Required: No Beliefs That Will Affect Care: None Current Living Situation: Spouse Feels Safe at Home: Yes Assistive Devices: None Review of Systems Review of Systems: All systems reviewed & are unremarkable except as noted in HPI & below Physical Exam Physical Exam: General: A&Ox3. NAD. Cooperative. HEENT: Atraumatic, normocephalic. Pulm: CTAB A&P. -wheezes, -rales, -rhonchi. Symmetrical chest rise. No increased work of breathing. No respiratory distress. Cardiac: RRR, -mrg. Radial pulses intact and symmetrical. Abdominal: Nontender, nondistended, soft. BS present. CRANIAL NERVES: II: Pupils equal and reactive, no relative afferent pupillary defect, no VF cuts III, IV, : EOM intact, no gaze preference or deviation, no nystagmus. V: normal sensation in V1, V2, and V3 segments bilaterally VII: no asymmetry, no nasolabial fold flattening VIII: normal hearing to speech IX, X: normal palatal elevation, no uvular deviation XI: 5/5 head turn and 5/5 shoulder shrug bilaterally XII: midline tongue protrusion MOTOR: RUE: 5/5 television cameraman strength, finger flexion/extension, interosseus LUE: 5/5 television cameraman strength, finger flexion/extension, interosseus RLE: 5/5 to hip flexion, ankle dorsiflexion/plantarflexion LLE: 5/5 to hip flexion, ankle dorsiflexion/plantarflexion REFLEXES: no clonus SENSORY: Normal to touch in upper and lower extremities without deficit or asymmetry Results & Data Results & Data Vital Signs (Past 12 Hours) Vital Signs Temp Pulse Pulse Resp BP BP Pulse Ox 02/14/23 13:19 169/97 H 02/14/23 13:18 80 24 99 02/14/23 13:16 81 18 99 02/14/23 13:10 81 21 99 02/14/23 13:05 170/87 H 02/14/23 13:05 86 25 H 99 02/14/23 13:00 92 H 19 100 02/14/23 12:57 82 20 97 02/14/23 12:54 99 02/14/23 13:02 90 02/14/23 13:06 98 02/14/23 13:06 83 20 170/87 H 98 02/14/23 12:22 36.9 C 78 20 177/65 H 99 O2 Del Method 02/14/23 13:19 02/14/23 13:18 02/14/23 13:16 02/14/23 13:10 02/14/23 13:05 02/14/23 13:05 02/14/23 13:00 02/14/23 12:57 02/14/23 12:54 02/14/23 13:02 02/14/23 13:06 Room Air 02/14/23 13:06 Room Air 02/14/23 12:22 Room Air PG Care Time/CCT Total # of Minutes Spent Total Time Spent with Patient: Total time spent is greater than 50% in coordination of care (as documented) at patient's floor/unit and/or counseling patient: Coding Level of Care Code 76017 INT INP/OBS CARE 3/75MIN Diagnoses TIA (transient ischemic attack) G45.9 Dizziness R42 Hypothyroid E03.9
[2023-02-14] MEDS ORDERED: LABETALOL HCL IV 5 MG/ML 20ML IV PRN (14:43)
[2023-02-14] MEDS ORDERED: ONDANSETRON INJ 2 MG/ML 2 ML VIAL IV PRN (16:44)
[2023-02-14] MEDS ORDERED: ACETAMINOPHEN 325 MG TAB PO PRN (16:44)
[2023-02-14] MEDS ORDERED: PHARMACIST DISCHARGE MED REC CONSULT PRN (16:44)
--- NOTE | 2023-02-14 18:49 | Magnetic Resonance Report ---
MR brain wo con HISTORY: 77 years-old Female cva/tia eval acute stroke like symptoms COMPARISON: 02/14/2023, 03/13/2021. TECHNIQUE: Multiplanar multisequence MRI of the brain was obtained without the use of IV contrast. FINDINGS: No restricted diffusion. Midline structures are unremarkable. Degenerative changes of the cervical sp ine. Partially empty sella. No acute intracranial hemorrhage, midline shift, abnormal extra-axial col lection, hydrocephalus or intra-axial mass. No pathologic blooming artifact. Involutional changes wit h mild to moderate scattered T2/FLAIR hyperintense foci throughout the white matter Cerebral venous sinuses and major arterial flow voids appear patent. Prior bilateral lens repair. The skull, and soft tissues are unremarkable. The mastoid air cells and paranasal sinuses are clear. IMPRESSION: 1. No acute intracranial abnormality. No acute or subacute infarct. 2. Chronic microvascular ischemic disease. ACT 112: Negative or not required by law. The above report was generated using voice recognition software. It may contain grammatical, syntax o r spelling errors. Electronically signed by: Howie Arellano M.D. 02/14/2023 6:47 PM
[2023-02-15 05:21] LABS: Basophils # (auto) 0.01 K/uL (0.00-0.20); Basophils % (auto) 0.2 %; Eosinophils # (auto) 0.41 K/uL (0.00-0.50); Eosinophils % (auto) 7.6 %; Hemoglobin 13.1 g/dl (12.0-16.0); Immature Granulocytes # (auto) 0.01 K/uL (0.01-0.20); Immature Granulocytes % (auto) 0.2 %; Lymphocytes % (auto) 44.5 %; Mean Corpuscular Hemoglobin 30.9 pg (25.0-34.0); Mean Corpuscular Hgb Conc 33.6 g/dL (32.0-36.0); Monocytes # (auto) 0.54 K/uL (0.11-0.59); Neutrophils # (auto) 2.02 K/uL (1.40-6.50); Neutrophils % (auto) 37.5 %; Platelet Count 171 K/uL (130-400); RDW Coefficient of Variation 13.6 % (11.5-14.5); RDW Standard Deviation 46.4 fL (36.4-46.3); Red Blood Count 4.24 M/uL (4.20-5.40); White Blood Count 5.39 K/ul (4.8-10.8)
[2023-02-15 05:36] LABS: Calcium 8.8 mg/dl (8.6-10.3); Chol HDL Ratio 2.9 (0-5); Creatinine Clr Calc Pharmacy 27.4 ml/min; Est GFR (African American) 45.1 ml/min; Est GFR (Non-African American) 38.9 ml/min; Potassium 3.8 mmol/L (3.5-5.1)
[2023-02-15] MEDS ORDERED: LEVOTHYROXINE SODIUM 75 MCG TABLET PO SCH (06:30)
[2023-02-15 07:46] LABS: Estimated Average Glucose 108 mg/dl; Hemoglobin A1C 5.4 % (4.5-5.6)
[2023-02-15] MEDS ORDERED: CLOPIDOGREL BISULFATE 75 MG TAB PO SCH (09:00)
[2023-02-15] MEDS ORDERED: ASPIRIN 81 MG ECTAB PO SCH (09:00)
[2023-02-15] MEDS ORDERED: ATORVASTATIN 40 MG TAB PO SCH (09:00)
[2023-02-15] MEDS ORDERED: ENOXAPARIN INJ 40 MG/0.4 ML SYR SQ SCH (09:00)
[2023-02-15] MEDS ORDERED: PANTOprazole 40 MG TAB PO SCH (09:00)
--- NOTE | 2023-02-15 11:46 | Neurology Consultation ---
Date of Consultation February 15, 2023 Assessment & Plan (1) TIA (transient ischemic attack): Plan Possible TIA related to hypertensive urgency. Patient's initial symptoms were a bit atypical for stroke, however, consisting of circumferential perioral numbness and dizziness, but followed by left mid and lower facial numbness, and blurry vision for the left eye. CT angiography of the head and neck are negative for vascular lesion. Brain MRI negative for acute or subacute stroke but does reveal chronic small vessel ischemic disease. She does relate a history of a problem with her left optic nerve that was diagnosed about 2 years ago but does not recall a specific diagnosis, (saw Dr. Francis). I am uncertain if she may have been diagnosed with optic neuritis or ischemic optic neuropathy. Her recurrence of left eye blurry vision may have been related to this previous issue, possibly due to some residual optic nerve damage. She does have mild perceived red color desaturation with the left eye, but otherwise, no afferent pupillary defect or other abnormality on general neurological examination. Would recommend medical management of hypertension, goal systolic blood pressure less than 130/80 going forward. I agree with starting aspirin 81 mg/day as well as atorvastatin 40 mg/day, goal LDL 70 or less going forward. Would also recommend outpatient follow-up with her photography colorist, Dr. Francis. No further neurologic recommendations at this time. Should follow-up with her PCP for ongoing management of cardiovascular/stroke risk factors. History of Present Illness Reason for Consultation: stroke? Requesting Physician: Carlin Attending Physician: Gino Gillis History of Present Illness The patient is a 77-year-old female who presented to the emergency department yesterday for further assessment of numbness and dizziness. She complained of an episode of circumferential perioral numbness that occurred yesterday afternoon while eating a popsicle. The circumferential numbness resolved but persisted as numbness along the left mid and lower face and was associated with dizziness and blurry vision involving the left eye only. She reports a history of a problem with her left optic nerve that occurred 2 years ago, she sees Dr. Francis, ophthalmology, but does not recall a more specific diagnosis such as optic neuritis or ischemic optic neuropathy. She does not report any residual vision difficulty. I see that she was fairly hypertensive at the time of presentation and throughout the day yesterday. A CT of the head was negative for hemorrhage or acute process. A CTA of the head and neck are unremarkable. A follow-up brain MRI reveals chronic microvascular ischemic disease and is also negative for acute or subacute infarct or other acute process. I did independently review these images. Her symptoms have resolved. Allergies Allergy/AdvReac Type Severity Reaction Status Date / Time cat dander Allergy Unknown Congested Verified 02/14/23 14:02 ciprofloxacin [From Cipro] Allergy Unknown "GOT CDIFF" Verified 02/14/23 14:02 clindamycin Allergy Unknown PT DOESN'T Verified 02/14/23 14:02 REMEMBER THIS ONE codeine Allergy Unknown HIVES Verified 02/14/23 14:02 Penicillins Allergy Unknown PT NOT SURE Verified 02/14/23 14:02 Sulfa (Sulfonamide Allergy Unknown IMMEDIATE Verified 02/14/23 14:02 Antibiotics) DEVELOPMENT OF UTI morphine AdvReac Unknown Vomiting Verified 02/14/23 14:02 Home Medications Medication Instructions Recorded Confirmed Type cholecalciferol (vitamin D3) 25 2,000 unit PO DAILY 02/23/18 02/14/23 History mcg (1,000 unit) capsule (Vitamin D3) cyanocobalamin (vitamin B-12) 1,000 mcg PO DAILY 05/20/18 02/14/23 History 1,000 mcg tablet multivitamin 1 tab PO DAILY 05/20/18 02/14/23 History alendronate 35 mg tablet 35 mg PO WK 10/12/20 02/14/23 History fexofenadine 180 mg tablet 180 mg PO UD PRN ALLERGIES 10/12/20 02/14/23 History fluticasone propionate 50 1 spray intranasal UD PRN SPRING 10/12/20 02/14/23 History mcg/actuation nasal ALLERGIES spray,suspension omeprazole 20 mg capsule,delayed 20 mg PO DAILY 10/12/20 02/14/23 History release estradiol 10 mcg vaginal tablet 10 mcg vaginal 2XWK 02/14/23 02/14/23 History levothyroxine 75 mcg tablet 75 mcg PO DAILY 02/14/23 02/14/23 History meclizine 25 mg tablet 25 mg PO TID PRN .DIZZYNESS 02/14/23 02/14/23 History Patient History Medical History Acid reflux Anxiety CONTROLS ON OWN History of anesthesia reaction WITH TONSIL AND ADENOID SURGERY, AGE 4 - HAD ETHER AND "ALMOST KILLED ME" , "COULDN'T WAKE UP" History of back problems HX BROKEN BACK, FOLLOWS CHIRO - NO LIMITATIONS History of hyperparathyroidism Hypothyroid Osteopenia Seasonal allergies SPRING Surgical History History of X3 History of cataract surgery RIGHT AND LEFT History of cholecystectomy History of colonoscopy History of hysterectomy History of incisional hernia repair History of parathyroid surgery 2 PARATHYROID GLANDS REMOVED History of tonsillectomy and adenoidectomy Family History Father Family history of diabetes mellitus Grandmother (Maternal) Family history of diabetes mellitus Aunt Family history of diabetes mellitus Brother Family history of colonic polyps Social History Smoking Status: Never smoker Do You Dip or Chew Tobacco: No; Hx Alcohol Use: No Hx Substance Use: No Preferred Language: Croatian Communication Ability: Effective Rental Representative Required: No Beliefs That Will Affect Care: None Current Living Situation: Spouse Feels Safe at Home: Yes Safety Concerns: Feels Safe At This Time Assistive Devices: Glasses Review of Systems Constitutional: no fever and no chills Eyes: no blind spots and no diplopia Ear, Nose, Mouth, Throat: no hearing loss Respiratory: no cough and no dyspnea Cardiovascular: no chest pain and no palpitations Gastrointestinal: no nausea and no vomiting Genitourinary: no dysuria Musculoskeletal: no neck pain and no myalgia Integumentary: no rash and no lesions Neurologic: as per Subjective / HPI; no tremor(s), no syncope, no headache(s), no abnormal speech and no memory loss Psychiatric: no depression and no anxiety Hematologic / Lymphatic: no easy bleeding and no easy bruising Exam (Neuro) Constitutional: + not well developed and no acute distress Eyes: normal visual campos by confrontation, PERRL and EOM intact bilaterally Neurologic: Oriented to:: Person, Place and Time Memory: Short Term Intact and Remote Intact Attention: Span Intact and Concentration Intact Speech Fluency: negative Dysarthria or Dysfluency Speech Aphasia: negative Aphasia Fund of Knowledge: Current Events, Past History and Vocabulary Cranial Nerves: Normal II, III, IV, , V, VII, VIII, IX, X, XI and XII Motor Strength: Normal Lower Extremities and Normal Upper Extremities Motor Tone: Normal Lower Extremities and Normal Upper Extremities Muscle Bulk/Involuntary Movements: No Involuntary Movements; negative Muscle Atrophy Sensation: Light Touch Intact, Pain/Temperature Intact and Proprioception Intact Coordination: Normal; negative Dysdiadochokinesia, Finger-Nose Abnormal or Heel-Ugarte Abnormal Deep Tendon Reflexes: Rt Triceps: 2+, Lt Triceps: 2+, Rt Biceps: 2+, Lt Biceps: 2+, Rt Brachioradialis: 2+, Lt Brachioradialis: 2+, Rt Patellar: 2+, Lt Patellar: 2+, Rt Ankle: 2+ and Lt Ankle: 2+ Special Tests: negative Babinski Present Details: Gait not tested Results & Data Vital Signs (Past 12 Hours) Vital Signs Pulse Resp BP Pulse Ox 02/15/23 10:01 69 15 154/66 H 99 02/15/23 08:00 68 20 149/74 H 95 02/15/23 07:18 71 02/15/23 06:00 75 24 137/50 L 96 02/15/23 05:00 67 17 96 02/15/23 04:00 82 29 H 121/68 95 02/15/23 03:00 68 12 97 02/15/23 02:00 67 15 149/67 H 95 02/15/23 01:00 82 23 96 02/15/23 00:00 79 24 135/68 98 Laboratory Results WBC 5.39, hemoglobin 13.1, hematocrit 39.0, platelet count 171, sodium 142, potassium 3.8, BUN 17, creatinine 1.31, glucose 89, hemoglobin A1c 5.4, calcium 8.8, magnesium 1.9, AST 24, ALT 16, triglycerides 86, cholesterol 175, LDL 98, VLDL 17, HDL [address] of the head, CTA of the head and neck, and brain MRI are as described in the HPI. An echocardiogram reveals normal left ventricular systolic function, no interatrial shunt, borderline left atrial enlargement. Electrocardiogram revealed a normal sinus rhythm, 80 bpm. Coding Level of Care Code 98121 INT INP/OBS CARE MIN Diagnoses TIA (transient ischemic attack) G45.9
--- NOTE | 2023-02-15 11:48 | XCELERA ---
[id number] \\[id number]
--- NOTE | 2023-02-15 12:34 | Discharge Summary ---
Date of Service February 15, 2023 Admission HPI Per Admitting Provider Around 11am was eating a popsicle and developed sudden onset dizziness and 'like I couldn't stand up straight' with lip and L facial numbness/tingling. Went and sat on the couch and numbness spread from midline and across the L side of her face with normal sensation on the R. [place] likeheaded and off balance, but had NO room spinning/no vertigo. She noticed some blurriness of the vision in her L eye while her R eye remained sharp. No chest pain or chest pressure. Did not notice any shrotness of breath. She thinks she did have some L sided leg seakness because she had difficulty standing and 'left arm and leg werent right, I could walk but was having trouble standing and had to hand onto stuff'. Had similar symptoms at the end of last December had an episode of being off balance 'like I was drunk but hadn't drank anthing' which improved fairly quickly. One other episode of dizziness while watering plants and noticed dizziness when moving her head up and down at that time. No numbness/tingling or weakness at that time. Monday prior to this had another episode of diziness no numbness/tingling which improved quickly but had difficulty walking to the kitchen. Each episode seems to be getting worse than the last. FHx of strokes- mother had a massive stroke at 80s. FHx of LA in 'everybody' but most over 65, 1x paternal uncle with massive LA before age 65. Father with hx of DM. No personal hx of DM. Pt with no hx of HTN. No history of HLD. Medical History: Reviewed Medications: Reviewed Surgical History: Reviewed Family history: Reviewed Allergies: Reviewed Social History: Reviewed Code Status: Full Code Principal Diagnosis TIA Discharge Exam General: A&Ox3. NAD. Cooperative. HEENT: Atraumatic, normocephalic. Pulm: CTAB A&P. -wheezes, -rales, -rhonchi. Symmetrical chest rise. Cardiac: RRR, -mrg. Radial pulses intact and symmetrical. Abdominal: Nontender, nondistended, soft. BS present. Neuro: No focal deficits. Discharge Data Allergies Allergy/AdvReac Type Severity Reaction Status Date / Time cat dander Allergy Unknown Congested Verified 02/14/23 14:02 ciprofloxacin [From Cipro] Allergy Unknown "GOT CDIFF" Verified 02/14/23 14:02 clindamycin Allergy Unknown PT DOESN'T Verified 02/14/23 14:02 REMEMBER THIS ONE codeine Allergy Unknown HIVES Verified 02/14/23 14:02 Penicillins Allergy Unknown PT NOT SURE Verified 02/14/23 14:02 Sulfa (Sulfonamide Allergy Unknown IMMEDIATE Verified 02/14/23 14:02 Antibiotics) DEVELOPMENT OF UTI morphine AdvReac Unknown Vomiting Verified 02/14/23 14:02 Consultations 02/14/23 14:08 ED Decision to Admit Stat 02/15/23 09:30 Consult Neurology Routine Ordered Studies 02/14/23 12:32 CT angio head w con Stat CT angio neck with con Stat CT head/brain wo con Stat 02/14/23 16:44 MR brain wo con Routine Hospital Course (1) TIA (transient ischemic attack): CVA eval TIA related to hypertensive urgency. Patient with left-sided facial numbness, tingling, and dizziness. At some lip tingling and poor coordination, acute onset Has had vertiginous symptoms recently, this is the first episode associated with numbness/tingling. No upper or lower extremity weakness Was evaluated as a stroke alert. Telestroke [facility] [place] Dr. Rodriguez. No TNKase recommended, DDx does include CVA/TIA. Standard stroke protocol and MRI recommended MRI Noncon pending Permissive hypertension goal BSG 220/110 pending MRI results. If CVA is noted continue permissive hypertension for 24 hours. Otherwise reduce goal parameters to systolic 180. Labetalol on-call. Received aspirin full dose while in the ER Continue aspirin 81 mg daily. - Pt reports multiple intermittent episodes of increasing similar and worsening sx. Possible crescendo strike like symptoms, will add DAPT x3 weeks. Reviewed with neurology. Agree with standard stroke work-up, and DAPT tomorrow as long as no bleeding is observed overnight. While patient had a past history of optic neuritis would be unusual for demyelinating disease to be present now, will defer contrasted MRI CThead: No acute findings CTA head/neck: No acute findings Echo with bubble study negative. Appreciate input from Neurology: Would recommend medical management of hypertension, goal systolic blood pressure less than 130/80 going forward. I agree with starting aspirin 81 mg/day as well as atorvastatin 40 mg/day, goal LDL 70 or less going forward. 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 Francis. No further neurologic recommendations at this time. Should follow-up with her PCP for ongoing management of cardiovascular/stroke risk factors. Hypothyroidism Continue Synthroid. TSH pending GERD Continue PPI, converted to 40 mg daily while on aspirin and due to stress (2) Dizziness: (3) Hypothyroid: Total Time Total Time Spent Total Time Spent (In Minutes): 40 Discharge Plan Discharge Items Patient Disposition: Home - Self-Care Reason For Visit: CVA EVAL Discharge Diagnosis: TIA Activity: Resume your previous activity Non-emergency contact: Primary Care Provider Call non-emergency contact if: you have any medication questions Follow-up/Referrals: Brinda Rowan, [Primary Care Provider] - Diet: Heart Healthy Addtl Attending Provider Instructions: Thankfully, you did not suffer a stroke. When a stroke occurs, you have irreversible loss of brain tissue. This can be caused by a lack of blood flow to brain caused by either bleeding or a blockage in an artery. Your blood flow resumed before any brain injury. To help decrease the risk of getting a stroke, we would need to work on decreasing your risk factors. Recommend controlling your blood pressure and adding baby aspirin. We talked about risks and benefits of taking lisinopril Though your cholesterol was good, we recommend cholesterol medication to improve it even further to limit risk of strokes. Please followup with Dr. Francis and your PCP. Pending Studies at Discharge: No Stand-Alone Forms: My [employer], Smoking Cessation Medications and DC Order Prescriptions: New atorvastatin 40 mg Tablet 40 mg PO PM Qty: 30 0RF aspirin 81 mg Tablet,Delayed Release (Dr/Ec) 81 mg PO QAM Qty: 30 0RF lisinopril 2.5 mg tablet 2.5 mg PO PM Qty: 30 0RF Continued cholecalciferol (vitamin D3) [Vitamin D3] 1,000 unit Capsule 2,000 unit PO DAILY multivitamin Tablet 1 tab PO DAILY cyanocobalamin (vitamin B-12) 1,000 mcg Tablet 1,000 mcg PO DAILY Patient Comments: "B 50 HAS B 12 IN IT" fexofenadine 180 mg Tablet 180 mg PO UD PRN (Reason: ALLERGIES) omeprazole 20 mg Capsule,Delayed Release(Dr/Ec) 20 mg PO DAILY Patient Comments: IN THE AFTERNOON fluticasone propionate 50 mcg/actuation [place],Suspension 1 spray INTRANASAL UD PRN (Reason: SPRING ALLERGIES) alendronate 35 mg Tablet 35 mg PO WK Patient Comments: FRIDAYS Rx Instructions: Q THUR levothyroxine 75 mcg tablet 75 mcg PO DAILY meclizine 25 mg tablet 25 mg PO TID PRN (Reason: .DIZZYNESS) estradiol 10 mcg tablet 10 mcg VAGINAL 2XWK Rx Instructions: , MON Discharge Orders: Discharge Order (Routine); Ordered 02/15/23 Ordered By: Gino Calhoun/Other Patient Handouts: TIA Dc, Stroke Prevention Activity, ED TIA: Transient Ischemic Attack Admission Data Admit Date/Time: 02/14/23 14:19 Attending Provider: Gino Gillis Admit Provider: Filemon Skinner Primary Care Provider: Brinda Rowan Other Providers: Filemon Skinner ; Alok Price Other Interventions: Discharge Summary Assessment (RN) Last Done: 02/15/23 13:06 Coding Level of Care Code 46894 INP/OBS DISCH >30 MIN Diagnoses TIA (transient ischemic attack) G45.9 Dizziness R42 Hypothyroid E03.9
[2023-02-15] MEDS ORDERED: STROKE PATIENT DISCHARGE STA (12:42)
--- NOTE | 2023-02-15 14:51 | Electrocardiogram Report ---
Test Reason : Blood Pressure : / mmHG Vent. Rate : 080 BPM Atrial Rate : 080 BPM P-R Int : 188 ms QRS Dur : 086 ms QT Int : 390 ms P-R-T Axes : 062 069 042 degrees QTc Int : 449 ms Normal sinus rhythm Nonspecific ST abnormality Abnormal ECG When compared with ECG of 20-MAY-2018 21:54, No significant change was found Confirmed by Jimmy Hinkle ([id number]) on 02/15/2023 2:51:18 PM Referred By: Brinda Rowan Confirmed By:Rogerio Hinkle
== END 2023-02-15 13:06 | disposition home or self-care (01) ==
LOC: ED 12:19 → EDINP 12:19 → SUATTDRO 14:19 → EDINP 16:44

== ENCOUNTER 2024-05-31 17:03 | Inpatient (IN) ==
--- NOTE | 2024-05-31 17:26 | Emergency Department Note ---
Impression & Plan Acute CVA (cerebrovascular accident), Tinnitus ED Provider Note NAME: KASSIDY KAY AGE: 79 SEX: F : 1945 ARRIVES VIA: Walk-In INFORMANT: [Patient] ED PROVIDER(S): [Ted Ruiz MD] CHIEF COMPLAINT: Abnormal imaging HISTORY OF PRESENT ILLNESS: The patient is an 79-year-old female who states that 4 days ago while walking, she suddenly felt dizzy. This only lasted a short time and then seemed to resolve. This week, she noticed that her right arm when writing was not working as it normally does. She thought she was maybe just tired. There has been no headache, speech slur, no dizziness. She has not had leg or arm weakness per se. The patient has a history of tinnitus. She had an MRI of her auditory system and was found to have suffered a subacute left frontal lobe infarct. She was referred to the ER. The patient has a history of TIA. She is on aspirin daily PMHx/PSHx/Social Hx: See Below PHYSICAL EXAM: GENERAL: Patient is in no acute distress. HEENT: No acute trauma, normocephalic atraumatic, mucous membranes moist, no nasal congestion. NECK: No stridor, no adenopathy, no meningismus, trachea is midline. LUNGS: Clear to auscultation bilaterally, no wheeze, no rhonchi, breath sounds equal. HEART: Without murmurs gallops or rubs, regular rate and rhythm. ABDOMEN: Soft, nontender, no peritonitis. EXTREMITIES: No cyanosis, full range of motion of all the joints without pain or difficulty. NEUROLOGIC: Oriented x 3, no acute motor or sensory deficits, no focal weakness. No speech slur or facial droop, no extremity drift or cerebellar dysfunction. SKIN: No jaundice, no diaphoresis. DIFFERENTIAL DIAGNOSIS: Stroke, intracranial bleeding, electrolyte imbalance, anemia, dysrhythmia, among others. EMERGENCY DEPARTMENT PROCEDURES: MEDICAL DECISION MAKING: There is no leukocytosis or worrisome anemia. There is a normal platelet count. No coagulopathy. No renal failure or significant electrolyte abnormality. No concerning liver enzyme elevation. ECG shows a normal sinus rhythm, no ischemia or dysrhythmia. Cardiac enzyme testing x 1 is not consistent with acute cardiac injury. Brain CT shows no acute bleed or mass effect. CT angio of the head and neck were performed, there was no significant stenosis or clot. On exam, the patient did not have any focal neurologic findings. Stroke scale was 0. She did complain of some difficulty with the functionality of her right arm that she had noticed with writing over the last few days. The patient presents with an outpatient MRI results showing a subacute stroke. Given her MRI findings, she will require a hospital stay. She was not a candidate for TNK as her symptoms have been ongoing for several days--the MRI showed findings of a subacute insult. I spoke with the patient and case management, the on-call hospitalist was consulted. Prior/Outside records/notes reviewed: None ECG per my interpretation: Indication was possible stroke. The ECG shows a normal sinus rhythm with a rate of 73. There is some nonspecific ST change. There is no ST elevation, no PVCs but the QTc is 431. Continuous Cardiac Monitoring per my interpretation: An order was placed for continuous cardiac monitoring. The monitor shows a rate of 74 with normal sinus rhythm. Imaging/x-ray results per my interpretation: Chronic Medical/Social conditions affecting care: Advanced age. Care/Management discussed with: Case management, the on-call hospitalist. Level of care consideration(s): After review of the information above and other included data: --I believe the patient requires escalation of care to admission DISPOSITION: Admission Past Med/Surg History Problem List (Updated 05/31/24 @ 18:58 by Ted Ruiz MD) Tinnitus (Acute) Acute CVA (cerebrovascular accident) (Acute) CVA (cerebral vascular accident) Pulsatile tinnitus Asymmetrical hearing loss Sensorineural hearing loss, bilateral Pulsatile tinnitus of right ear Hypothyroid Dizziness (Acute) TIA (transient ischemic attack) (Acute) Encounter for pre-operative examination Back pain (Acute) Back pain (Acute) Medical History Shingles History of anesthesia reaction WITH TONSIL AND ADENOID SURGERY, AGE 4 - HAD ETHER AND "ALMOST KILLED ME" , "COULDN'T WAKE UP" History of hyperparathyroidism Acid reflux Osteopenia History of back problems HX BROKEN BACK, FOLLOWS CHIRO - NO LIMITATIONS Seasonal allergies SPRING Anxiety CONTROLS ON OWN Surgical History History of colonoscopy History of parathyroid surgery 2 PARATHYROID GLANDS REMOVED History of cataract surgery RIGHT AND LEFT History of cholecystectomy History of incisional hernia repair History of hysterectomy History of X3 History of tonsillectomy and adenoidectomy Family History Father Family history of diabetes mellitus Grandmother (Maternal) Family history of diabetes mellitus Aunt Family history of diabetes mellitus Brother Family history of colonic polyps Social History Smoking Status: Never smoker Do You Dip or Chew Tobacco: No; Hx Alcohol Use: No Hx Substance Use: No Preferred Language: Bengali Communication Ability: Effective Sap Ppm Consultant Required: No Beliefs That Will Affect Care: None Current Living Situation: Spouse Feels Safe at Home: Yes Assistive Devices: Glasses Allergies Allergies Allergy/AdvReac Type Severity Reaction Status Date / Time cat dander Allergy Unknown Congested Verified 02/14/23 14:02 ciprofloxacin [From Cipro] Allergy Unknown "GOT CDIFF" Verified 02/14/23 14:02 clindamycin Allergy Unknown PT DOESN'T Verified 02/14/23 14:02 REMEMBER THIS ONE codeine Allergy Unknown HIVES Verified 02/14/23 14:02 Penicillins Allergy Unknown PT NOT SURE Verified 02/14/23 14:02 Sulfa (Sulfonamide Allergy Unknown IMMEDIATE Verified 02/14/23 14:02 Antibiotics) DEVELOPMENT OF UTI morphine AdvReac Unknown Vomiting Verified 02/14/23 14:02 Home Meds Home Medications Medication Instructions Recorded Confirmed cholecalciferol (vitamin D3) 25 2,000 unit PO DAILY 02/23/18 02/14/23 mcg (1,000 unit) capsule (Vitamin D3) cyanocobalamin (vitamin B-12) 1,000 mcg PO DAILY 05/20/18 02/14/23 1,000 mcg tablet multivitamin 1 tab PO DAILY 05/20/18 02/14/23 alendronate 35 mg tablet 35 mg PO WK 10/12/20 02/14/23 fexofenadine 180 mg tablet 180 mg PO UD PRN ALLERGIES 10/12/20 02/14/23 fluticasone propionate 50 1 spray intranasal UD PRN SPRING 10/12/20 02/14/23 mcg/actuation nasal ALLERGIES spray,suspension omeprazole 20 mg capsule,delayed 20 mg PO DAILY 05/03/21 09/05/23 release estradiol 10 mcg vaginal tablet 10 mcg vaginal 2XWK 02/14/23 02/14/23 levothyroxine 75 mcg tablet 75 mcg PO DAILY 02/14/23 02/14/23 meclizine 25 mg tablet 25 mg PO TID PRN .DIZZYNESS 02/14/23 02/14/23 Previous Rx's Medication Instructions Recorded aspirin 81 mg tablet,delayed 81 mg PO QAM #30 tabs 02/15/23 release atorvastatin 40 mg tablet 40 mg PO PM #30 tabs 02/15/23 lisinopril 2.5 mg tablet 2.5 mg PO PM #30 tabs 02/15/23 hydrocodone 5 mg-acetaminophen 325 0.5 tab PO Q6H PRN pain #10 tabs 07/30/23 mg tablet Results & Data (ED) Vital Signs Vital Signs - 24 hr 05/31/24 17:04 05/31/24 17:12 05/31/24 17:25 Temperature 36.6 C Temperature Source Oral Pulse Rate 74 78 Pulse Rate [Apical] 74 Pulse Rhythm [Apical] Regular Pulse Strength [Apical] Normal Respiratory Rate 18 22 Respiratory Effort / Characteristics Non-Labored Spontaneous Respiratory Depth Normal Respiratory Pattern Regular Blood Pressure 159/76 H Blood Pressure [Right Arm] 186/78 H Blood Pressure Mean 103 Blood Pressure Mean [Right Arm] 114 Blood Pressure Position [Right Arm] Lying Pulse Oximetry 99 99 Oxygen Delivery Method Room Air Sepsis Recent Fever Within 48 Hours No Sepsis New/Unexplained Change in Mental Status No Sepsis Action Taken by Nursing No Action Required Home Medications Current Medication List: was personally reviewed by me Laboratory Data Attestation: I reviewed the patient's lab results. 05/31/24 17:30 05/31/24 17:30 Lab Results 05/31/24 Range/Units 17:30 WBC 7.71 (4.8-10.8) K/ul RBC 4.47 (4.20-5.40) M/uL Hgb 13.9 (12.0-16.0) g/dl Hct 40.5 (37.0-47.0) % MCV 90.6 (80.0-100.0) fL MCH 31.1 (25.0-34.0) pg MCHC 34.3 (32.0-36.0) g/dL RDW Std Deviation 45.8 (36.4-46.3) fL RDW Coeff of Renato 13.7 (11.5-14.5) % Plt Count 192 (130-400) K/uL MPV 10.0 (9.4-12.4) fL Immature Gran % (Auto) 0.3 % Neut % (Auto) 36.1 % Lymph % (Auto) 44.6 % Bledsoe % (Auto) 8.2 % Eos % (Auto) 10.5 % Baso % (Auto) 0.3 % Neut # (Auto) 2.79 (1.40-6.50) K/uL Lymph # (Auto) 3.44 H (1.20-3.40) K/uL Bledsoe # (Auto) 0.63 H (0.11-0.59) K/uL Eos # (Auto) 0.81 H (0.00-0.50) K/uL Baso # (Auto) 0.02 (0.00-0.20) K/uL Immature Gran # (Auto) 0.02 (0.01-0.20) K/uL PT 10.4 (9.0-12.0) Seconds INR 1.0 (0.9-1.1) APTT 24 (21-31) Seconds PTT Ratio 0.9 Sodium 140 (136-145) mmol/L Potassium 3.7 (3.5-5.1) mmol/L Chloride 107 (98-107) mmol/L Carbon Dioxide 26 (21-32) mmol/L Anion Gap 7 (3-11) BUN 15 (6-23) mg/dl Creatinine 1.13 (0.6-1.2) mg/dl Est Cr Clr Drug Dosing 30.9 ml/min eGFR 49.18 BUN/Creatinine Ratio 13.3 (10-20) Glucose 101 H (70-99(Fasting)) mg/dl Calcium 9.7 (8.6-10.3) mg/dl Magnesium 2.1 (1.7-2.4) mg/dl Total Bilirubin 0.4 (0.2-1.0) mg/dl AST 26 (13-39) U/L ALT 20 (7-52) U/L Alkaline Phosphatase 70 (34-104) U/L Troponin I High Sens 10.8 (0-14) pg/ml Total Protein 7.2 (6.0-8.3) gm/dl Albumin 4.4 (3.4-5.0) gm/dl Globulin 2.8 (2.5-4.0) gm/dl Albumin/Globulin Ratio 1.6 (0.9-2) Administered Medications Discontinued Medications Ioversol (Optiray 320 125ml) 119 ml IV ONCE ONE Stop: 05/31/24 18:23 Last Admin: 05/31/24 18:22 Dose: 119 ml Documented By: TAYA Imaging Data Radiologist's Impression: Head CT 05/31/24 17:12 EXAM: CT Head Without Intravenous Contrast INDICATION: Tinnitus TECHNIQUE: Axial computed tomography images of the head/brain without intravenous contrast. Sagittal and/or coronal reformats are provided. Sagittal and coronal reformatted images were created and reviewed. This CT exam was performed using one or more of the following dose reduction techniques: automated exposure control, adjustment of the mA and/or kV according to patient size, and/or use of iterative reconstruction technique. COMPARISON: CT brain 06/15/2023 FINDINGS: Limitations: None. Brain and extra-axial spaces: There is age appropriate cortical atrophy and chronic ischemic periventricular white matter hypodensity. No acute infarct, hemorrhage or mass noted. Stable old left lentiform lacunar infarct versus prominent perivascular space. Bones/joints: No acute changes. Soft tissues: No significant abnormality noted. Vasculature: No acute abnormality noted. Sinuses: No layering fluid in the visualized portions of the paranasal sinuses. Mastoid air cells: No mastoid effusion. Orbits: No significant abnormality noted. IMPRESSION: Cerebral atrophy. No acute changes. ACT 112: Negative or not required by law. Electronically signed by Lisa Horton 05-31-2024 6:36 PM Head CTA 05/31/24 17:12 EXAM: CT Angiography Head With Intravenous Contrast INDICATION: Tinnitus. TECHNIQUE: Axial computed tomographic angiography images of the head with intravenous contrast. Sagittal and coronal reformatted images were created and reviewed. This CT exam was performed using one or more of the following dose reduction techniques: automated exposure control, adjustment of the mA and/or kV according to patient size, and/or use of iterative reconstruction technique. MIP reconstructed images were created and reviewed. CONTRAST: 119ml of Optiray 320 was administered intravenously. COMPARISON: No relevant prior studies available. FINDINGS: Right internal carotid artery: No acute change noted. Intracranial segment is patent with no significant stenosis. No aneurysm. Right anterior cerebral artery: No abnormality noted. No occlusion or significant stenosis. No aneurysm. Right middle cerebral artery: No abnormality noted. No occlusion or significant stenosis. No aneurysm. Right posterior cerebral artery: No abnormality noted. No occlusion or significant stenosis. No aneurysm. Right vertebral artery: No significant abnormality noted. Left internal carotid artery: No acute change noted. Intracranial segment is patent with no significant stenosis. No aneurysm. Left anterior cerebral artery: No abnormality noted. No occlusion or significant stenosis. No aneurysm. Left middle cerebral artery: No abnormality noted. No occlusion or significant stenosis. No aneurysm. Left posterior cerebral artery: No abnormality noted. No occlusion or significant stenosis. No aneurysm. Left vertebral artery: No significant abnormality noted. Basilar artery: No abnormality noted. No occlusion or significant stenosis. No aneurysm. Other vasculature: Patent dural venous sinuses. IMPRESSION: No large vessel occlusion, aneurysm or dissection. ACT 112: Negative or not required by law. Electronically signed by Lisa Horton 05-31-2024 6:42 PM Neck CTA 05/31/24 17:12 EXAM: CT Angiography Neck With Intravenous Contrast INDICATION: Tinnitus. TECHNIQUE: Routine carotid CT angiography protocol was performed with intravenous contrast. NASCET criteria using the distal ICAs for comparison were used for evaluation of stenoses. Sagittal and coronal reformatted images were created and reviewed. This CT exam was performed using one or more of the following dose reduction techniques: automated exposure control, adjustment of the mA and/or kV according to patient size, and/or use of iterative reconstruction technique. MIP reconstructed images were created and reviewed. CONTRAST: 119ml of Optiray 320 was administered intravenously. COMPARISON: None. FINDINGS: VASCULATURE: Right common carotid artery: No abnormality noted. No occlusion or significant stenosis. No dissection. Right internal carotid artery: No abnormality noted. Extracranial segment is patent with no occlusion or significant stenosis. No dissection. Right external carotid artery: No abnormality noted. No occlusion. Right vertebral artery: No abnormality noted. No occlusion or significant stenosis. No dissection. Left common carotid artery: No abnormality noted. No occlusion or significant stenosis. No dissection. Left internal carotid artery: Small focal calcification in the bulb. Extracranial segment is patent with no occlusion or significant stenosis. No dissection. Left external carotid artery: No abnormality noted. No occlusion. Left vertebral artery: No abnormality noted. No occlusion or significant stenosis. No dissection. NECK: Bones/joints: No acute or atypical chronic changes. Soft tissues: No abnormality noted. Lung apices: Clear. CAROTID STENOSIS REFERENCE USING NASCET CRITERIA: % ICA stenosis = (1 - narrowest ICA diameter/diameter of distal cervical ICA) x 100. Mild - <50% stenosis. Moderate - 50-69% stenosis. Severe - 70-94% stenosis. Near occlusion - 95-99% stenosis. Occluded - 100% stenosis. IMPRESSION: No significant angiographic abnormality in the neck. ACT 112: Negative or not required by law. Electronically signed by Lisa Horton 05-31-2024 6:39 PM [facility], [place] [phone] Magnetic Resonance Report Patient: KASSIDY KAY Admit Date: 05/31/24 MR#: [id number] Address1: [address] [place] [address] Acct ID:[id number] Address2: Date: 1945 [facility] Zip: [place] [address] Age: 79 Location: MRI Sex: F Room/Bed: Att Phy: Miesha Perez PA-C Diagnosis: H91.8X3 - Other specified hearing loss, bilateral Joselyn Phy: Brinda Rowan D.O. Service Date: 05/31/24 [facility] Phy: Interpreting Phy: Howie ArellanoAdmit Phy: Ordering Phy: Miesha Perez PA-C cc: ~ MR brain IAC wo/w con HISTORY: 79 years-old Female H91.8X3 - Other specified hearing loss, bilateral COMPARISON: Brain MRI 02/14/2023 TECHNIQUE: Multiplanar multisequence MRI of the brain was obtained with and without IV contrast utilizing internal auditory Canal protocol FINDINGS: There is an ill-defined 7 mm focus of increased diffusion-weighted signal and intermediate ADC signal within the left frontal lobe salazar radiata on image 15 series 4 which is new from prior. Midline structures are unremarkable. Degenerative changes of the cervical spine. Partially empty sella. No acute intracranial hemorrhage, midline shift, abnormal extra-axial collection, hydrocephalus or intra-axial mass. No pathologic blooming artifact. The internal auditory canals, 7th and 8th cranial nerves appear unremarkable. No mass of the cerebellar pontine angles. No abnormal enhancement. Involutional changes with mild to moderate scattered T2/FLAIR hyperintense foci throughout the white matter. Cerebral venous sinuses and major arterial flow voids appear patent. Prior bilateral lens repair. The skull, and soft tissues are unremarkable. The mastoid air cells and paranasal sinuses are clear. IMPRESSION: 1. 7 mm focus of increased diffusion-weighted signal within the left frontal lobe salazar radiata is suggestive of an acute versus subacute lacunar infarct. 2. Unremarkable appearance of the internal auditory canals. 3. No abnormal enhancement. 4. Involutional changes with chronic microvascular ischemic disease. Discharge Plan Visit Data Chief Complaint: Abnormal Labs/Diagnostic Testing Stated Complaint: MRI, SHOWED SIGNS OF STROKE ED Provider: Ted Ruiz Discharge Problem: Acute CVA (cerebrovascular accident), Tinnitus Patient Disposition: Admitted As Inpatient Condition: Fair Forms Stand Alone Forms: My [facility] Prescriptions Prescriptions: No Action cholecalciferol (vitamin D3) [Vitamin D3] 1,000 unit Capsule 2,000 unit PO DAILY multivitamin Tablet 1 tab PO DAILY cyanocobalamin (vitamin B-12) 1,000 mcg Tablet 1,000 mcg PO DAILY Patient Comments: "B 50 HAS B 12 IN IT" fexofenadine 180 mg Tablet 180 mg PO UD PRN (Reason: ALLERGIES) omeprazole 20 mg Capsule,Delayed Release(Dr/Ec) 20 mg PO DAILY Patient Comments: IN THE AFTERNOON fluticasone propionate 50 mcg/actuation [place],Suspension 1 spray INTRANASAL UD PRN (Reason: SPRING ALLERGIES) alendronate 35 mg Tablet 35 mg PO WK Patient Comments: FRIDAYS Rx Instructions: Q UR levothyroxine 75 mcg tablet 75 mcg PO DAILY meclizine 25 mg tablet 25 mg PO TID PRN (Reason: .DIZZYNESS) estradiol 10 mcg tablet 10 mcg VAGINAL 2XWK Rx Instructions: , MON atorvastatin 40 mg Tablet 40 mg PO PM Qty: 30 0RF aspirin 81 mg Tablet,Delayed Release (Dr/Ec) 81 mg PO QAM Qty: 30 0RF lisinopril 2.5 mg tablet 2.5 mg PO PM Qty: 30 0RF hydrocodone-acetaminophen 5-325 mg tablet 0.5 tab PO Q6H PRN (Reason: pain) Qty: 10 0RF Referrals Referrals: Brinda Rowan DO [Primary Care Provider] - Discharge Problem: Tinnitus Qualifiers: Laterality: bilateral Qualified Code(s): H93.13 - Tinnitus, bilateral
--- NOTE | 2024-05-31 17:31 | History & Physical Report ---
Date of Service May 31, 2024 Assessment & Plan (1) CVA (cerebral vascular accident): Plan: Right dysmetria, dizziness with acute CVA MRIbrain IAC protocol as outpatient with 7 limited focus of impaired diffusion consistent with left frontal lobe salazar radiata acute versus subacute infarct Patient is on aspirin at baseline Continue aspirin/Plavix for 3 weeks and then transition to Plavix Patient symptom onset was 48 hours ago, subacute to acute appearance. Will defer permissive hypertension due to symptoms greater than 2 days and target goal 180/105 Continue lisinopril, dose increased due to hypertension and lacunar appearance Atorvastatin increased to 80 mg, lipid panel pending Last angiography was performed in 2022. CTA/head and neck for completion of stroke protocol ordered. No need to repeat MRI No known history of A-fib and has been in sinus on EKGs here, but has had intermittent palpitations. Recommend patient have an outpatient Holter monitor given intermittent palpitations, history of CVA, not TIA. She is in sinus on a dmission Reviewed with neurology. Agree with CTAhead and neck, and okay to defer repeat MRI. Agree with 3 weeks of dual antiplatelet and then transitioning to Plavix monotherapy. Agree with deferring permissive hypertension as symptoms have been present for more than 24 hours. Will increase lisinopril and target goal less than 180. If no complications overnight or complications on CT, okay to defer neurology consult and plan on antiplatelets management as discussed. Last A1c 5.4%, well-controlled. Over 1-year-old, repeated Hypothyroidism Continue Synthroid, TSH pending Medical History: Reviewed Medications: Reviewed Surgical History: Reviewed Family history: Reviewed Allergies: Reviewed Social History: Reviewed Code Status: Full code History of Present Illness Primary Care Provider: Brinda Rowan DO Padma is a 79-year-old female with past medical history of TIA, hypothyroidism, GERD who was seen as an outpatient for dizziness and who underwent an outpatient MRIbrain auditory canal protocol which showed a 7 mm focus of increased diffusion at the left frontal lobe salazar radiata suggestive of acute versus subacute lacunar infarct. Involutional changes with chronic microvascular disease otherwise. She was referred to the ER for completion of a stroke evaluation. Had bilateral ear ringing and pounding sensation in her RIGHT ear which caused her to see her ENT. Had an MRI and was referred to the ER for stroke This past Monday (4-5 days ago) she reports she had a feeling of 'fuzziness' in her head and dizziness which stopped her on a walk. Seemed to last for less than a minute than resolved. No weakness in her arms or legs, no sensory change in her arms or legs but reprots she has had a hard time writing [employer] cards with her RIGHTdominant and but worked this up to fatigue writing to many and this has completely resolved/improved. Was writing cards this past Monday. No syncope. No presyncope. Endorses fatigue. +post nasal drip particularly in the morning. Otherwise denies cough. No dyspnea. No chest pain, chest pressure, or dyspnea on admission. No nausea or vomiting. +Tingling/numbness on her LEFT cheek intermittently over several weeks without acute change. Did have a short episode of dysarthria talking to her sister on the phone three weeks ago when she had a sudden episode of fatigue and word finding difficulty. Thinks she was dysarthric. No receptive aphasia. Went to bed and sx were gone by morning. No history of afib but endorses intermittent palpitations. Medical History: Reviewed Medications: Reviewed Surgical History: Reviewed Family history: Reviewed Allergies: Reviewed Social History: No tobacco use. no ETOH use. Code Status: Full Allergies Allergy/AdvReac Type Severity Reaction Status Date / Time cat dander Allergy Unknown Congested Verified 02/14/23 14:02 ciprofloxacin [From Cipro] Allergy Unknown "GOT CDIFF" Verified 02/14/23 14:02 clindamycin Allergy Unknown PT DOESN'T Verified 02/14/23 14:02 REMEMBER THIS ONE codeine Allergy Unknown HIVES Verified 02/14/23 14:02 Penicillins Allergy Unknown PT NOT SURE Verified 02/14/23 14:02 Sulfa (Sulfonamide Allergy Unknown IMMEDIATE Verified 02/14/23 14:02 Antibiotics) DEVELOPMENT OF UTI morphine AdvReac Unknown Vomiting Verified 02/14/23 14:02 Home Medications Medication Instructions Recorded Confirmed Type cholecalciferol (vitamin D3) 25 2,000 unit PO DAILY 02/23/18 02/14/23 History mcg (1,000 unit) capsule (Vitamin D3) cyanocobalamin (vitamin B-12) 1,000 mcg PO DAILY 05/20/18 02/14/23 History 1,000 mcg tablet multivitamin 1 tab PO DAILY 05/20/18 02/14/23 History alendronate 35 mg tablet 35 mg PO WK 10/12/20 02/14/23 History fexofenadine 180 mg tablet 180 mg PO UD PRN ALLERGIES 10/12/20 02/14/23 History fluticasone propionate 50 1 spray intranasal UD PRN SPRING 10/12/20 02/14/23 History mcg/actuation nasal ALLERGIES spray,suspension omeprazole 20 mg capsule,delayed 20 mg PO DAILY 10/12/20 02/14/23 History release estradiol 10 mcg vaginal tablet 10 mcg vaginal 2XWK 02/14/23 02/14/23 History levothyroxine 75 mcg tablet 75 mcg PO DAILY 02/14/23 02/14/23 History meclizine 25 mg tablet 25 mg PO TID PRN .DIZZYNESS 02/14/23 02/14/23 History aspirin 81 mg tablet,delayed 81 mg PO QAM #30 tabs 02/15/23 Rx release atorvastatin 40 mg tablet 40 mg PO PM #30 tabs 02/15/23 Rx lisinopril 2.5 mg tablet 2.5 mg PO PM #30 tabs 02/15/23 Rx hydrocodone 5 mg-acetaminophen 325 0.5 tab PO Q6H PRN pain #10 tabs 07/30/23 Rx mg tablet Past Med/Surg History Problem List (Updated 05/31/24 @ 18:06 by Filemon Skinner MD) CVA (cerebral vascular accident) Pulsatile tinnitus Asymmetrical hearing loss Sensorineural hearing loss, bilateral Pulsatile tinnitus of right ear Hypothyroid Dizziness (Acute) TIA (transient ischemic attack) (Acute) Encounter for pre-operative examination Back pain (Acute) Back pain (Acute) Medical History Shingles History of anesthesia reaction WITH TONSIL AND ADENOID SURGERY, AGE 4 - HAD ETHER AND "ALMOST KILLED ME" , "COULDN'T WAKE UP" History of hyperparathyroidism Acid reflux Osteopenia History of back problems HX BROKEN BACK, FOLLOWS CHIRO - NO LIMITATIONS Seasonal allergies SPRING Anxiety CONTROLS ON OWN Hypothyroid Surgical History History of colonoscopy History of parathyroid surgery 2 PARATHYROID GLANDS REMOVED History of cataract surgery RIGHT AND LEFT History of cholecystectomy History of incisional hernia repair History of hysterectomy History of X3 History of tonsillectomy and adenoidectomy Family History Father Family history of diabetes mellitus Grandmother (Maternal) Family history of diabetes mellitus Aunt Family history of diabetes mellitus Brother Family history of colonic polyps Social History Smoking Status: Never smoker Do You Dip or Chew Tobacco: No; Hx Alcohol Use: No Hx Substance Use: No Preferred Language: Malian Communication Ability: Effective Certified Registered Nurse Practitioner Required: No Beliefs That Will Affect Care: None Current Living Situation: Spouse Feels Safe at Home: Yes Assistive Devices: Glasses Physical Exam Physical Exam: General: A&Ox3. NAD. Cooperative. HEENT: Atraumatic, normocephalic. Pulm: CTAB A&P. -wheezes, -rales, -rhonchi. Symmetrical chest rise. No increased work of breathing. No respiratory distress. Cardiac: RRR, -mrg. Radial pulses intact and symmetrical. Abdominal: Nontender, nondistended, soft. BS present. CRANIAL NERVES: II: Pupils equal and reactive, no relative afferent pupillary defect, no VF cuts III, IV, : EOM intact, no gaze preference or deviation, no nystagmus. V: normal sensation in V1, V2, and V3 segments bilaterally VII: no asymmetry, no nasolabial fold flattening VIII: normal hearing to speech IX, X: normal palatal elevation, no uvular deviation XI: 5/5 head turn and 5/5 shoulder shrug bilaterally XII: midline tongue protrusion MOTOR: RUE: 5/5 Shoulder internal rotation, external rotation, flexion, extension, abduction, adduction 5/5 Elbow flexion/extension, wrist flexi on/extension 5/5 search developer strength, finger flexion/extens ion, interosseus LUE: 5/5 Shoulder internal rotation, external rotation, flexion, extension, abduction, adduction 5/5 Elbow flexion/extension, wrist flexi on/extension 5/5 search developer strength, finger flexion/extens ion, interosseus RLE: 5/5 to hip flexion knee flexion/extensio n, ankle dorsiflexion/plantarflexion LLE: 5/5 to hip flexion, knee flexion/extensi on, ankle dorsiflexion/plantarflexion SENSORY: Normal to touch in upper and lower extremities without deficit or asymmetry Results & Data Results & Data Vital Signs (Past 12 Hours) Vital Signs Temp Pulse Resp BP Pulse Ox 05/31/24 17:25 78 05/31/24 17:04 36.6 C 74 18 159/76 H 99 PG Care Time/CCT Total # of Minutes Spent Total Time Spent with Patient: Total time spent is greater than 50% in coordination of care (as documented) at patient's floor/unit and/or counseling patient: Coding Level of Care Code 86192 INT INP/OBS CARE 3/75MIN Diagnoses CVA (cerebral vascular accident) I63.9
[2024-05-31 17:43] LABS: Basophils # (auto) 0.02 K/uL (0.00-0.20); Basophils % (auto) 0.3 %; Eosinophils # (auto) 0.81 K/uL (0.00-0.50); Eosinophils % (auto) 10.5 %; Hematocrit (blood only) 40.5 % (37.0-47.0); Hemoglobin 13.9 g/dl (12.0-16.0); Immature Granulocytes # (auto) 0.02 K/uL (0.01-0.20); Immature Granulocytes % (auto) 0.3 %; Lymphocytes # (auto) 3.44 K/uL (1.20-3.40); Lymphocytes % (auto) 44.6 %; Mean Corpuscular Hemoglobin 31.1 pg (25.0-34.0); Mean Corpuscular Hgb Conc 34.3 g/dL (32.0-36.0); Mean Corpuscular Volume 90.6 fL (80.0-100.0); Monocytes # (auto) 0.63 K/uL (0.11-0.59); Monocytes % (auto) 8.2 %; Neutrophils # (auto) 2.79 K/uL (1.40-6.50); Neutrophils % (auto) 36.1 %; Platelet Count 192 K/uL (130-400); RDW Coefficient of Variation 13.7 % (11.5-14.5); RDW Standard Deviation 45.8 fL (36.4-46.3); Red Blood Count 4.47 M/uL (4.20-5.40); White Blood Count 7.71 K/ul (4.8-10.8)
[2024-05-31 17:59] LABS: Albumin Globulin Ratio 1.6 (0.9-2); Albumin Level 4.4 gm/dl (3.4-5.0); BUN Creatinine Ratio 13.3 (10-20); Bilirubin,Total 0.4 mg/dl (0.2-1.0); Calcium 9.7 mg/dl (8.6-10.3); Creatinine Clr Calc Pharmacy 30.9 ml/min; Globulin 2.8 gm/dl (2.5-4.0); Magnesium 2.1 mg/dl (1.7-2.4); Potassium 3.7 mmol/L (3.5-5.1); Total Protein 7.2 gm/dl (6.0-8.3)
[2024-05-31 18:06] LABS: Troponin I High Sensitivity 10.8 pg/ml (0-14)
[2024-05-31] MEDS ORDERED: LABETALOL HCL IV 5 MG/ML 20ML IV PRN (18:12)
[2024-05-31] MEDS: OPTIRAY 320 125ml IV ONE (18:22)
[2024-05-31 18:23] LABS: Partial Thromboplastin Ratio 0.9; Partial Thromboplastin Time 24 Seconds (21-31); Prothrombin Time 10.4 Seconds (9.0-12.0)
--- NOTE | 2024-05-31 18:36 | CT Scan Report ---
EXAM: CT Head Without Intravenous Contrast INDICATION: Tinnitus TECHNIQUE: Axial computed tomography images of the head/brain without intravenous contrast. Sagittal and/or coronal reformats are provided. Sagittal and coronal reformatted images were created and reviewed. This CT exam was performed using one or more of the following dose reduction techniques: automated exposure control, adjustment of the mA and/or kV according to patient size, and/or use of iterative reconstruction technique. COMPARISON: CT brain 06/15/2023 FINDINGS: Limitations: None. Brain and extra-axial spaces: There is age appropriate cortical atrophy and chronic ischemic periventricular white matter hypodensity. No acute infarct, hemorrhage or mass noted. Stable old left lentiform lacunar infarct versus prominent perivascular space. Bones/joints: No acute changes. Soft tissues: No significant abnormality noted. Vasculature: No acute abnormality noted. Sinuses: No layering fluid in the visualized portions of the paranasal sinuses. Mastoid air cells: No mastoid effusion. Orbits: No significant abnormality noted. IMPRESSION: Cerebral atrophy. No acute changes. ACT 112: Negative or not required by law. Electronically signed by Lisa Horton 05-31-2024 6:36 PM
--- NOTE | 2024-05-31 18:40 | CT Scan Report ---
EXAM: CT Angiography Neck With Intravenous Contrast INDICATION: Tinnitus. TECHNIQUE: Routine carotid CT angiography protocol was performed with intravenous contrast. NASCET criteria using the distal ICAs for comparison were used for evaluation of stenoses. Sagittal and coronal reformatted images were created and reviewed. This CT exam was performed using one or more of the following dose reduction techniques: automated exposure control, adjustment of the mA and/or kV according to patient size, and/or use of iterative reconstruction technique. MIP reconstructed images were created and reviewed. CONTRAST: 119ml of Optiray 320 was administered intravenously. COMPARISON: None. FINDINGS: VASCULATURE: Right common carotid artery: No abnormality noted. No occlusion or significant stenosis. No dissection. Right internal carotid artery: No abnormality noted. Extracranial segment is patent with no occlusion or significant stenosis. No dissection. Right external carotid artery: No abnormality noted. No occlusion. Right vertebral artery: No abnormality noted. No occlusion or significant stenosis. No dissection. Left common carotid artery: No abnormality noted. No occlusion or significant stenosis. No dissection. Left internal carotid artery: Small focal calcification in the bulb. Extracranial segment is patent with no occlusion or significant stenosis. No dissection. Left external carotid artery: No abnormality noted. No occlusion. Left vertebral artery: No abnormality noted. No occlusion or significant stenosis. No dissection. NECK: Bones/joints: No acute or atypical chronic changes. Soft tissues: No abnormality noted. Lung apices: Clear. CAROTID STENOSIS REFERENCE USING NASCET CRITERIA: % ICA stenosis = (1 - narrowest ICA diameter/diameter of distal cervical ICA) x 100. Mild - <50% stenosis. Moderate - 50-69% stenosis. Severe - 70-94% stenosis. Near occlusion - 95-99% stenosis. Occluded - 100% stenosis. IMPRESSION: No significant angiographic abnormality in the neck. ACT 112: Negative or not required by law. Electronically signed by Lisa Horton 05-31-2024 6:39 PM
--- NOTE | 2024-05-31 18:44 | CT Scan Report ---
EXAM: CT Angiography Head With Intravenous Contrast INDICATION: Tinnitus. TECHNIQUE: Axial computed tomographic angiography images of the head with intravenous contrast. Sagittal and coronal reformatted images were created and reviewed. This CT exam was performed using one or more of the following dose reduction techniques: automated exposure control, adjustment of the mA and/or kV according to patient size, and/or use of iterative reconstruction technique. MIP reconstructed images were created and reviewed. CONTRAST: 119ml of Optiray 320 was administered intravenously. COMPARISON: No relevant prior studies available. FINDINGS: Right internal carotid artery: No acute change noted. Intracranial segment is patent with no significant stenosis. No aneurysm. Right anterior cerebral artery: No abnormality noted. No occlusion or significant stenosis. No aneurysm. Right middle cerebral artery: No abnormality noted. No occlusion or significant stenosis. No aneurysm. Right posterior cerebral artery: No abnormality noted. No occlusion or significant stenosis. No aneurysm. Right vertebral artery: No significant abnormality noted. Left internal carotid artery: No acute change noted. Intracranial segment is patent with no significant stenosis. No aneurysm. Left anterior cerebral artery: No abnormality noted. No occlusion or significant stenosis. No aneurysm. Left middle cerebral artery: No abnormality noted. No occlusion or significant stenosis. No aneurysm. Left posterior cerebral artery: No abnormality noted. No occlusion or significant stenosis. No aneurysm. Left vertebral artery: No significant abnormality noted. Basilar artery: No abnormality noted. No occlusion or significant stenosis. No aneurysm. Other vasculature: Patent dural venous sinuses. IMPRESSION: No large vessel occlusion, aneurysm or dissection. ACT 112: Negative or not required by law. Electronically signed by Lisa Horton 05-31-2024 6:42 PM
[2024-05-31] MEDS ORDERED: ACETAMINOPHEN 325 MG TAB PO PRN (20:32)
[2024-05-31] MEDS ORDERED: PHARMACIST DISCHARGE MED REC CONSULT PRN (20:32)
[2024-05-31] MEDS: ROSUVASTATIN CALCIUM 20 MG TAB PO SCH (21:33)
[2024-05-31] MEDS: CLOPIDOGREL BISULFATE 75 MG TAB PO SCH (21:33)
[2024-05-31] MEDS: lisinopril 2.5 MG TAB PO SCH (21:33)
[2024-06-01] MEDS: LEVOTHYROXINE SODIUM 75 MCG TABLET PO SCH (05:38)
[2024-06-01 06:25] LABS: Basophils # (auto) 0.02 K/uL (0.00-0.20); Basophils % (auto) 0.3 %; Eosinophils # (auto) 0.77 K/uL (0.00-0.50); Eosinophils % (auto) 11.3 %; Hematocrit (blood only) 39.1 % (37.0-47.0); Hemoglobin 13.1 g/dl (12.0-16.0); Immature Granulocytes # (auto) 0.01 K/uL (0.01-0.20); Immature Granulocytes % (auto) 0.1 %; Lymphocytes # (auto) 2.91 K/uL (1.20-3.40); Lymphocytes % (auto) 42.7 %; Mean Corpuscular Hemoglobin 30.5 pg (25.0-34.0); Mean Corpuscular Hgb Conc 33.5 g/dL (32.0-36.0); Mean Corpuscular Volume 90.9 fL (80.0-100.0); Monocytes # (auto) 0.56 K/uL (0.11-0.59); Monocytes % (auto) 8.2 %; Neutrophils # (auto) 2.54 K/uL (1.40-6.50); Neutrophils % (auto) 37.4 %; Platelet Count 188 K/uL (130-400); RDW Coefficient of Variation 13.9 % (11.5-14.5); RDW Standard Deviation 46.5 fL (36.4-46.3); White Blood Count 6.81 K/ul (4.8-10.8)
[2024-06-01 06:37] LABS: BUN Creatinine Ratio 11.5 (10-20); Chol HDL Ratio 1.8 (0-5); Creatinine Clr Calc Pharmacy 30.9 ml/min
[2024-06-01 07:36] LABS: Estimated Average Glucose 111 mg/dl; Hemoglobin A1C 5.5 % (4.5-5.6)
[2024-06-01 08:24] VITALS: RESP 18
[2024-06-01] MEDS: amLODIPine BESYLATE 5 MG TAB PO SCH (08:55)
[2024-06-01] MEDS ORDERED: STROKE PATIENT DISCHARGE STA (09:31)
[2024-06-01 12:02] VITALS: BP 153/65; PULSE 71; TEMP 98.1; O2SAT 100
--- NOTE | 2024-06-01 12:44 | Electrocardiogram Report ---
Test Reason : Blood Pressure : */* mmHG Vent. Rate : 73 BPM Atrial Rate : 73 BPM P-R Int : 176 ms QRS Dur : 86 ms QT Int : 392 ms P-R-T Axes : 50 68 54 degrees QTcB Int : 431 ms Normal sinus rhythm Nonspecific ST abnormality Abnormal ECG When compared with ECG of 14-Feb-2023 12:58, No significant change was found Confirmed by Mingo Henry ([id number]) on 06/01/2024 12:43:44 PM Referred By: Confirmed By: Mingo Henry
--- NOTE | 2024-06-01 12:53 | Hospitalist Progress Note ---
Date of Service June 01, 2024 Assessment & Plan (1) CVA (cerebral vascular accident): Plan: -Patient Had bilateral ear ringing and pounding sensation in her RIGHT ear which caused her to see her ENT. -Had an MRI which showed left frontal lobe salazar radiata acute versus subacute infarct and was subsequently referred to the ER for stroke -A day prior to ENT visit, she had an episode of dysarthria, which resolved Patient is on aspirin at baseline Continue aspirin/Plavix for 3 weeks and then transition to Plavix Patient symptom onset was 48 hours ago, subacute to acute appearance. Will defer permissive hypertension due to symptoms greater than 2 days and target goal 180/105 Continue lisinopril, dose increased due to hypertension and lacunar appearance Atorvastatin increased to 80 mg, Last angiography was performed in 2022. CTA/head and neck for completion of stroke protocol ordered. No need to repeat MRI No known history of A-fib and has been in sinus on EKGs here, but has had intermittent palpitations. Recommend patient have an outpatient Holter monitor given intermittent palpitations, history of CVA, not TIA. She is in sinus on admission Reviewed with neurology. Agree with CTAhead and neck, and okay to defer repeat MRI. Agree with 3 weeks of dual antiplatelet and then transitioning to Plavix monotherapy. Agree with deferring permissive hypertension as symptoms have been present for more than 24 hours. Will increase lisinopril and target goal less than 180. If no complications overnight or complications on CT, okay to defer neurology consult and plan on antiplatelets management as discussed. Last A1c 5.4%, well-controlled. Over 1-year-old, repeated Hypothyroidism Continue Synthroid, TSH pending Medical History: Reviewed Medications: Reviewed Surgical History: Reviewed Family history: Reviewed Allergies: Reviewed Social History: Reviewed Code Status: Full code Admission and Anticipated Discharge Date Admission Date: May 31, 2024 Subjective patient seen and examined, no new complaints Review of Systems Review of Systems: All systems reviewed are negative, apart from the ones contained in the history. Physical Exam Physical Exam: The patient is awake, alert and oriented 3, well developed and well nourished, normocephalic and atraumatic, lying in bed and in no acute distress. HEENT--PERRL, EOMI, mucous membranes and oropharynx mildly dry Neck--supple. No JVD. No bruits. Thyroid normal, trachea midline, no adenopathy. Heart--normal S1 and S2. No murmurs, rubs or gallops. Lungs--clear bilaterally, no respiratory distress, no accessory muscle use. Abdomen--normal bowel sounds and soft. Extremities--no cyanosis or clubbing. No edema. Dermatologic--normal skin turgor, normal color, no abnormal lymph nodes, no rash. Neurologic--cranial nerves II through XII grossly intact. Rheumatologic--normal range of motion. Psychiatric--normal affect. Results & Data Results & Data Vital Signs (Past 12 Hours) Vital Signs Temp Pulse Pulse Resp BP Pulse Ox O2 Del Method 06/01/24 12:01 98.1 F 71 18 153/65 H 100 Room Air 06/01/24 09:42 97.9 F 68 18 141/68 H 99 06/01/24 08:22 97.9 F 68 18 141/68 H 99 Room Air 06/01/24 07:30 71 06/01/24 02:45 97.9 F 77 20 120/60 98 Room Air PG Care Time/CCT Total # of Minutes Spent Total Time Spent with Patient: Total time spent is greater than 50% in coordination of care (as documented) at patient's floor/unit and/or counseling patient: Coding Level of Care Code 87572 SUB INP/OBS CARE 2/35MIN Diagnoses CVA (cerebral vascular accident) I63.9 Time Spent (min) 35
--- NOTE | 2024-06-01 12:59 | Discharge Summary ---
Date of Service June 01, 2024 Admission HPI Per Admitting Provider Padma is a 79-year-old female with past medical history of TIA, hypothyroidism, GERD who was seen as an outpatient for dizziness and who underwent an outpatient MRIbrain auditory canal protocol which showed a 7 mm focus of increased diffusion at the left frontal lobe salazar radiata suggestive of acute versus subacute lacunar infarct. Involutional changes with chronic microvascular disease otherwise. She was referred to the ER for completion of a stroke evaluation. Had bilateral ear ringing and pounding sensation in her RIGHT ear which caused her to see her ENT. Had an MRI and was referred to the ER for stroke This past Monday (4-5 days ago) she reports she had a feeling of 'fuzziness' in her head and dizziness which stopped her on a walk. Seemed to last for less than a minute than resolved. No weakness in her arms or legs, no sensory change in her arms or legs but reprots she has had a hard time writing [employer] cards with her RIGHTdominant and but worked this up to fatigue writing to many and t his has completely resolved/improved. Was writing cards this past Monday. No syncope. No presyncope. Endorses fatigue. +post nasal drip particularly in the morning. Otherwise denies cough. No dyspnea . No chest pain, chest pressure, or dyspnea on admission. No nausea or vomiting. +Tingling/numbness on her LEFT cheek intermittently over several weeks without acute change. Did have a short episode of dysarthria talking to her sister on the phone three weeks ago when she had a sudden episode of fatigue and word finding difficulty. Thinks she was dysarthric. No receptive aphasia. Went to bed and sx were gone by morning. No history of afib but endorses intermittent palpitations. Medical History: Reviewed Medications: Reviewed Surgical History: Reviewed Family history: Reviewed Allergies: Reviewed Social History: No tobacco use. no ETOH use. Code Status: Full Admission Exam (Per Admitting) Constitutional The patient is awake, alert and oriented 3, well developed and well nourished, normocephalic and atraumatic, lying in bed and in no acute distress. HEENT--PERRL, EOMI, mucous membranes and oropharynx mildly dry Neck--supple. No JVD. No bruits. Thyroid normal, trachea midline, no adenopathy. Heart--normal S1 and S2. No murmurs, rubs or gallops. Lungs--clear bilaterally, no respiratory distress, no accessory muscle use. Abdomen--normal bowel sounds and soft. Extremities--no cyanosis or clubbing. No edema. Dermatologic--normal skin turgor, normal color, no abnormal lymph nodes, no rash. Neurologic--cranial nerves II through XII grossly intact. Rheumatologic--normal range of motion. Psychiatric--normal affect. Discharge Data Consultations 05/31/24 18:07 ED Decision to Admit Stat Hospital Course (1) CVA (cerebral vascular accident): -Patient Had bilateral ear ringing and pounding sensation in her RIGHT ear which caused her to see her ENT. -Had an MRI which showed left frontal lobe salazar radiata acute versus subacute infarct and was subsequently referred to the ER for stroke -A day prior to ENT visit, she had an episode of dysarthria, which resolved Patient is on aspirin at baseline Continue aspirin/Plavix for 3 weeks and then transition to Plavix Patient symptom onset was 48 hours ago, subacute to acute appearance. Will defer permissive hypertension due to symptoms greater than 2 days and target goal 180/105 Continue lisinopril, dose increased due to hypertension and lacunar appearance Atorvastatin increased to 80 mg, Last angiography was performed in 2022. CTA/head and neck for completion of stroke protocol ordered. No need to repeat MRI No known history of A-fib and has been in sinus on EKGs here, but has had intermittent palpitations. Recommend patient have an outpatient Holter monitor given intermittent palpitations, history of CVA, not TIA. She is in sinus on admission Reviewed with neurology. Agree with CTAhead and neck, and okay to defer repeat MRI. Agree with 3 weeks of dual antiplatelet and then transitioning to Plavix monotherapy. Agree with deferring permissive hypertension as symptoms have been present for more than 24 hours. Will increase lisinopril and target goal less than 180. If no complications overnight or complications on CT, okay to defer neurology consult and plan on antiplatelets management as discussed. Last A1c 5.4%, well-controlled. Over 1-year-old, repeated Hypothyroidism Continue Synthroid, TSH pending Medical History: Reviewed Medications: Reviewed Surgical History: Reviewed Family history: Reviewed Allergies: Reviewed Social History: Reviewed Code Status: Full code Coding Level of Care Code 64900 INP/OBS DISCH >30 MIN Diagnoses CVA (cerebral vascular accident) I63.9 Time Spent (min) 35
[2024-06-01] MEDS ORDERED: ENOXAPARIN INJ 30 MG/0.3 ML SYR SQ SCH (21:00)
== END 2024-06-01 14:31 | disposition home or self-care (01) | DRG 66 ==
LOC: ED 17:03 → SUATTDRO 18:12 → 2E 18:12